=== PATIENT | female | born 1950 | race Caucasian/White ===

== ENCOUNTER → 2020-01-13 12:15 | Outpatient (CLI) | payer MEDICARE, SELFPAY ==
--- NOTE | ~2020-01-13 | MM_ITS ---
EXAMINATION: MM screening radha BI w arlet HISTORY: Screening mammogram, history of breast implant removal TECHNIQUE: Craniocaudal and mediolateral oblique 3-D tomosynthesis images were obtained and synthetic 2-D images were generated. CAD analysis was submitted and interpreted. COMPARISON: 12/07/2018, 11/30/2018, 05/20/2018, 11/14/2017, 11/11/2017, 10/28/2016, 10/27/2015 BREAST PARENCHYMAL COMPOSITION: There are scattered areas of fibroglandular density. FINDINGS: There is stable architectural distortion at the sites of prior breast implants. Also noted are a stable asymmetry in the right breast on the mediolateral oblique view and stable calcifications in the posterior third of the left breast which have undergone biopsy There is no evidence of suspic ious mass, calcification, or architectural distortion to suggest malignancy in either breast. There h as been no suspicious interval change. IMPRESSION: 1. No mammographic evidence of malignancy. 2. Recommend routine screening mammography in one year. BI-RADS Category 2: Benign finding(s). Reviewed, dictated and finalized at location A.
== END ==
PROVIDERS: PCP Internal Medicine; Visit Provider Nurse Practitioner
DX: Z12.31 Encounter for screening mammogram for malignant neoplasm of breast (principal)
CPT/HCPCS: 77063; 77067

== ENCOUNTER → 2020-07-12 11:03 | Outpatient (CLI) | payer MEDICARE, SELFPAY ==
--- NOTE | ~2020-07-12 | DEXA_ITS ---
Bone Density Report Name: Sulema Lima Age: 69 Sex: Female Ethnicity: White Date of : 1950 Indication: monitoring treatment; parental hip fracture; height loss; rheumatoid arthritis; postmenopausal Referring Provider: JOANN, MARK Study: Bone densitometry was performed. Exam Date: July 12, 2020 Accession number: [id number] Bone Density: Region BMD T-score Z-score Classification AP Spine (L1-L4) 1.011 -0.3 1.9 Normal Femoral Neck (Left) 0.730 -1.1 0.8 Osteopenia Total Hip (Left) 0.887 -0.4 1.1 Normal Femoral Neck (Right) 0.757 -0.8 1.1 Normal Total Hip (Right) 0.929 -0.1 1.5 Normal Total Hip Mean 0.908 -0.3 1.3 Normal World Health Organization criteria for BMD impression classify patients as: Normal (T-score at or above -1.0), Osteopenia (T-score between -1.0 and -2.5), or Osteoporosis (T-score at or below -2.5). 10-year Fracture Risk: FRAX not reported because: Treated for osteoporosis Previous Exams: Region Exam Age BMD T-score BMD Change BMD Change Date g/cm2 vs Baseline vs Previous AP Spine(L1-L4) 07/12/2020 69 1.011 -0.3 0.183* 0.063* 05/20/2018 67 0.949 -0.9 0.120* 0.009 02/16/2016 65 0.939 -1.0 0.111* 0.046* 02/09/2014 63 0.893 -1.4 0.065* 0.065* 09/11/2011 60 0.829 -2.0 Total Hip(Left) 07/12/2020 69 0.887 -0.4 0.032* -0.028* 05/20/2018 67 0.915 -0.2 0.060* 0.003 02/16/2016 65 0.912 -0.2 0.056* 0.034* 02/09/2014 63 0.878 -0.5 0.022 0.022 09/11/2011 60 0.856 -0.7 Total Hip(Right) 07/12/2020 69 0.929 -0.1 0.027 -0.010 05/20/2018 67 0.938 0.0 0.036* 0.023 02/16/2016 65 0.915 -0.2 0.013 -0.003 02/09/2014 63 0.918 -0.2 0.016 0.016 09/11/2011 60 0.902 -0.3 *Denotes significance at 95% confidence level, LSC for AP Spine = 0.022 g/cm2, LSC for Total Hip = 0.027 g/cm2 Clinical Information Provided by Patient: Parent has had a hip fracture Has rheumatoid arthritis Is being treated for osteoporosis Has used the following medications: Prolia (i.e. denosumab), Vitamin D, Calcium, MTV Patient maximum height was 64.5 Menopause Age: 54 Drinks caffeinated beverages Onset of menses at age 11 Number of children 3 Impression: The patient has
== END ==
PROVIDERS: PCP Internal Medicine; Visit Provider Internal Medicine
DX: M81.0 Age-related osteoporosis without current pathological fracture (principal); M85.852 Other specified disorders of bone density and structure, left thigh
CPT/HCPCS: 77080

== ENCOUNTER → 2021-02-22 11:00 | Outpatient (CLI) | payer MEDICARE, SELFPAY ==
--- NOTE | ~2021-02-22 | MM_ITS ---
EXAMINATION: MM screening radha BI w arlet HISTORY: Screening mammogram TECHNIQUE: Craniocaudal and mediolateral oblique 3-D tomosynthesis images were obtained and synthetic 2-D images were generated. CAD analysis was submitted and interpreted. COMPARISON: 01/13/2020 bilateral screening mammogram 12/07/2018 diagnostic left mammogram 11/30/2018 bilateral screening mammogram BREAST PARENCHYMAL COMPOSITION: There are scattered areas of fibroglandular density. FINDINGS: There is a biopsy marker in the left breast; history of prior benign breast biopsy. There is evidence of bilateral implant removal. There is no evidence of suspicious mass, calcification, or architectural distortion to suggest malig dmitry in either breast. There has been no suspicious interval change. IMPRESSION: 1. No mammographic evidence of malignancy. 2. Recommend routine screening mammography in one year. BI-RADS Category 2: Benign finding(s). Reviewed, dictated and finalized at location A. 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
== END ==
PROVIDERS: PCP Internal Medicine; Visit Provider Nurse Practitioner
DX: Z12.31 Encounter for screening mammogram for malignant neoplasm of breast (principal)
CPT/HCPCS: 77063; 77067

== ENCOUNTER 2022-02-04 03:09 | Day surgery (SDC) | payer MEDICARE, SELFPAY ==
[2022-01-17 13:52] VITALS: BMI 23.0
--- NOTE | 2022-02-01 13:50 | PM.HPGS ---
History of Present Illness History of Present Illness Consent: Risks, benefits, and alternatives have been discussed and questions answered. Patient agrees to proceed with procedure. Chief complaint: positive cologuard Narrative: Sulema Lima is a 71 year old female Referred for colon cancer screening. She had a positive Cologuard test Review of Systems Review of Systems: All systems reviewed & are unremarkable except as noted in HPI and below PMFSH Past Medical History Medical History BMI 23.0-23.9, adult Degenerative arthritis of knee, bilateral Surgical History Surgical History H/O foot surgery bunion History of thyroid surgery Family History Family History Other Cancer Hypertension Social History Social History Smoking status: Never smoker Substance use: never Living arrangements: with family Gender identity (if verbalized by the patient): Female Spiritual care concerns: No Meds Home Medications and Allergies Home Medications Medication Instructions Recorded Confirmed Type alprazolam 0.25 mg tablet 0.25 mg PO DAILY 03/22/20 02/04/22 History atorvastatin 20 mg tablet 20 mg PO DAILY 03/22/20 02/04/22 History carvedilol 3.125 mg tablet 3.125 mg PO Q12H 03/22/20 02/04/22 History levothyroxine 112 mcg capsule 112 mcg PO DAILY 03/22/20 02/04/22 History sertraline 50 mg tablet 50 mg PO DAILY 03/22/20 02/04/22 History Allergies Allergy/AdvReac Type Severity Reaction Status Date / Time No Known Allergies Allergy Verified 02/04/22 12:10 Exam Const: General: alert Orientation/consciousness: patient oriented x3 Resp: Auscultation: clear to auscultation bilaterally Cardio: Rhythm: regular rhythm GI: GI Palp: Yes Soft to palpation and No Tenderness to palpation present (GI) Neuro: General: patient oriented x3 Assessment and Plan Assessment and plan (1) Colon cancer screening: Code(s): Z12.11 - Encounter for screening for malignant neoplasm of colon Status: Acute Assessment and Plan: Colonoscopy with possible biopsy or polypectomy or cautery or injection of substances.
[2022-02-04 12:12] VITALS: BP 112/68; PULSE 66; RESP 18; TEMP 36.2; O2SAT 100; BMI 23.3
[2022-02-04] MEDS: LACTATED RINGERS 1,000 ML 150 ML IV CONT (12:24)
--- NOTE | 2022-02-04 12:54 | P.PNAN_ITS ---
Anes - Initial Pre Proc Eval Procedure: Operation Date: 02/04/22 13:30 Proposed Procedures p Colonoscopy - Jordan Harvey MD Date/Time: 02/04/22 12:54 Surgeon: Jordan Harvey MD Pre Op Diagnosis: positive cologuard Patient Data Age: 71 Gender: F Height: 1.6 m Weight: 59.6 kg Last Vital Signs Temp 97.1 F L 02/04/22 12:12 Pulse 66 02/04/22 12:12 Resp 18 02/04/22 12:12 BP 112/68 02/04/22 12:12 Pulse Ox 100 02/04/22 12:12 O2 Del Method Room Air 02/04/22 12:12 Allergies Allergy/AdvReac Type Severity Reaction Status Date / Time No Known Allergies Allergy Verified 02/04/22 12:10 Home Medications Medication Instructions Recorded Confirmed Type alprazolam 0.25 mg tablet 0.25 mg PO DAILY 03/22/20 02/04/22 History atorvastatin 20 mg tablet 20 mg PO DAILY 03/22/20 02/04/22 History carvedilol 3.125 mg tablet 3.125 mg PO Q12H 03/22/20 02/04/22 History levothyroxine 112 mcg capsule 112 mcg PO DAILY 03/22/20 02/04/22 History sertraline 50 mg tablet 50 mg PO DAILY 03/22/20 02/04/22 History Patient hx anesthesia problems: none Family hx anesthesia problems: none Results Review: All pre-operative results and documents have been reviewed as part of the pre- operative evaluation. [facility] Past Medical History Medical History BMI 23.0-23.9, adult Degenerative arthritis of knee, bilateral Surgical History Surgical History H/O foot surgery bunion History of thyroid surgery Family History Family History Other Cancer Hypertension Social History Social History Smoking status: Never smoker Substance use: never Living arrangements: with family Gender identity (if verbalized by the patient): Female Spiritual care concerns: No Anes - Eval Final PreProcedure Day of Procedure 02/04/22 12:54 Patient weight: normal Heart: regular rate and rhythm Lungs: clear to auscultation Airway: Mallampati scale class II Neurological: alert and oriented Last oral intake: >/= 8 hours ASA classification: II Emergent: no Anesthetic plan: proceed Anesthesia type and monitoring: general GIVS and standard monitoring Results Review: All pre-operative results and documents have been reviewed as part of the pre- operative evaluation. Informed Consent: The patient's anesthetic plan and its attendant risks and benefits were discussed with the patient/family/POA. Questions were solicited and answers provided to the satisfaction of the patient/family/POA.
[2022-02-04 13:39] VITALS: BP 109/74; PULSE 73; RESP 21; O2SAT 100
[2022-02-04 13:49] VITALS: BP 127/76; PULSE 70; RESP 21; O2SAT 100
[2022-02-04 13:59] VITALS: BP 143/85; PULSE 75; RESP 23; O2SAT 100
== END 2022-02-04 14:06 | disposition home or self-care (01) ==
PROVIDERS: PCP Internal Medicine; Visit Provider Internal Medicine Gastroenterology
PROC: 0DJD8ZZ Inspection of Lower Intestinal Tract, Via Natural or Artificial Opening Endoscopic (ICD-10-PCS; CPT 45378; principal; 2022-02-04 13:30)
DX: Z12.11 Encounter for screening for malignant neoplasm of colon (principal); K57.30 Diverticulosis of large intestine without perforation or abscess without bleeding; R19.5 Other fecal abnormalities
CPT/HCPCS: G0121; J2704; J7120

== ENCOUNTER → 2022-02-25 10:01 | Outpatient (CLI) | payer MEDICARE, SELFPAY ==
--- NOTE | ~2022-02-25 | MM_ITS ---
EXAMINATION: MM screening radha BI w arlet HISTORY: Screening TECHNIQUE: Craniocaudal and mediolateral oblique 3-D tomosynthesis images were obtained and synthetic 2-D images were generated. CAD analysis was submitted and interpreted. COMPARISON: Comparison to multiple prior studies sequentially, with oldest reviewed study dated 09/2018. BREAST PARENCHYMAL COMPOSITION: Breast composed of scattered areas of fibroglandular density. FINDINGS: The right breast is stable without evidence for malignancy. There is a developing cluster o f indeterminate calcifications in the central posterior aspect of the left breast. There is an adjace nt tissue marker. There is no evidence of suspicious mass, calcification, or architectural distortion to suggest malignancy in either breast. There has been no suspicious interval change. IMPRESSION: 1. Developing cluster of indeterminate left breast calcifications. 2. Magnification views are recommended. BI-RADS Category 0: Incomplete: Needs additional imaging evaluation. Reviewed, dictated and finalized at location A. 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
== END ==
PROVIDERS: PCP Internal Medicine; Visit Provider Nurse Practitioner
DX: Z12.31 Encounter for screening mammogram for malignant neoplasm of breast (principal); R92.8 Other abnormal and inconclusive findings on diagnostic imaging of breast
CPT/HCPCS: 77063; 77067

== ENCOUNTER → 2022-03-15 09:19 | Outpatient (CLI) | payer MEDICARE, SELFPAY ==
--- NOTE | ~2022-03-15 | MM_ITS ---
EXAMINATION: MM diagnostic mammo unilat LT HISTORY: Indeterminate left breast calcifications on screening mammogram TECHNIQUE: Magnification views of the left breast were performed. CAD analysis was submitted and inte rpreted. COMPARISON: Prior mammograms dating back to 05/20/2018 FINDINGS: With magnification, calcifications in the posterior third of the left breast have a similar morphology and distribution as on prior examinations and likely reflect dystrophic calcification at the site of prior breast implant. There has been no suspicious interval change. IMPRESSION: 1. No mammographic evidence of malignancy. 2. Recommend routine screening mammography in one year. BI-RADS Category 2: Benign finding(s). Reviewed, dictated and finalized at location A. ARY AIDE
== END ==
PROVIDERS: PCP Internal Medicine; Visit Provider Obstetrics & Gynecology Gynecology
DX: R92.8 Other abnormal and inconclusive findings on diagnostic imaging of breast (principal)
CPT/HCPCS: 77065

== ENCOUNTER → 2022-07-17 10:59 | Outpatient (CLI) | payer MEDICARE, SELFPAY ==
--- NOTE | ~2022-07-17 | DEXA_ITS ---
Bone Density Report Name: TANISHA RAMSEY Age: 71 Sex: Female Ethnicity: White Date of : 1950 Indication: monitoring treatment; parental hip fracture; height loss; rheumatoid arthritis; Referring Provider: JOANN, MARK Study: Bone densitometry was performed. Exam Date: July 17, 2022 Accession number: [id number] Bone Density: Region BMD T-score Z-score Classification AP Spine (L1-L4) 1.030 -0.2 2.2 Normal Femoral Neck (Left) 0.747 -0.9 1.1 Normal Total Hip (Left) 0.914 -0.2 1.5 Normal Femoral Neck (Right) 0.781 -0.6 1.4 Normal Total Hip (Right) 0.936 0.0 1.7 Normal Total Hip Mean 0.925 -0.1 1.6 Normal World Health Organization criteria for BMD impression classify patients as: Normal (T-score at or above -1.0), Osteopenia (T-score between -1.0 and -2.5), or Osteoporosis (T-score at or below -2.5). 10-year Fracture Risk: FRAX not reported because: All T-scores for Spine Total, Hip Total, Femoral Neck at or above -1.0 Treated for osteoporosis Previous Exams: Region Exam Age BMD T-score BMD Change BMD Change Date g/cm2 vs Baseline vs Previous AP Spine(L1-L4) 07/17/2022 71 1.030 -0.2 0.202* 0.019 07/12/2020 69 1.011 -0.3 0.183* 0.063* 05/20/2018 67 0.949 -0.9 0.120* 0.009 02/16/2016 65 0.939 -1.0 0.111* 0.046* 02/09/2014 63 0.893 -1.4 0.065* 0.065* 09/11/2011 60 0.829 -2.0 Total Hip(Left) 07/17/2022 71 0.914 -0.2 0.058* 0.026 07/12/2020 69 0.887 -0.4 0.032* -0.028* 05/20/2018 67 0.915 -0.2 0.060* 0.003 02/16/2016 65 0.912 -0.2 0.056* 0.034* 02/09/2014 63 0.878 -0.5 0.022 0.022 09/11/2011 60 0.856 -0.7 Total Hip(Right) 07/17/2022 71 0.936 0.0 0.034* 0.008 07/12/2020 69 0.929 -0.1 0.027 -0.010 05/20/2018 67 0.938 0.0 0.036* 0.023 02/16/2016 65 0.915 -0.2 0.013 -0.003 02/09/2014 63 0.918 -0.2 0.016 0.016 09/11/2011 60 0.902 -0.3 *Denotes significance at 95% confidence level, LSC for AP Spine = 0.022 g/cm2, LSC for Total Hip = 0.027 g/cm2 Clinical Information Provided by Patient: Parent has had a hip fracture Has rheumatoid arthritis Is being treated for osteoporosis Has used the following medications: Prolia (i.e. denosumab), Vit
== END ==
PROVIDERS: PCP Internal Medicine; Visit Provider Internal Medicine
DX: M81.0 Age-related osteoporosis without current pathological fracture (principal)
CPT/HCPCS: 77080

== ENCOUNTER 2023-05-26 08:10 | Outpatient (CLI) | payer MEDICARE, SELFPAY ==
--- NOTE | ~2023-05-26 | XR_ITS ---
XR knee LT min 4V DATE: 05/26/2023 08:45 INDICATION: Bilateral primary osteoarthritis of the knees TECHNIQUE: [place] and standing AP, PA and lateral views COMPARISON: 08/29/2021 bilateral knees FINDINGS: Left femoral intramedullary agnes with distal transverse through screw. Prominent periarticular spurring and severe joint space narrowing at the patellofemoral joint. Mild periarticular spurring at the lateral compartment. Medial and lateral compartment joint spaces a ppear well preserved. No radiopaque interarticular loose body or chondrocalcinosis. No fracture or dislocation or joint effusion, periosteal reaction or bone destruction is detected. IMPRESSION: Severe osteoarthritis at the patellofemoral joint Mild osteoarthritis at the lateral compartment Femoral intramedullary agnes Reviewed, dictated and finalized at location B. SPECIALIST
--- NOTE | ~2023-05-26 | XR_ITS ---
XR knee RT min 4V DATE: 05/26/2023 08:45 INDICATION: Bilateral primary osteoarthritis of knee TECHNIQUE: [place], standing AP, PA and lateral views COMPARISON: 09/10/2022 bilateral knees are not available from PACS FINDINGS: Severe patellofemoral joint space narrowing and prominent periarticular spurring consistent with severe patellofemoral osteoarthritis. Mild periarticular spurring of the lateral and to a lesser extent medial compartments. Medial and lat eral compartment joint spaces are relatively preserved. No fracture or dislocation or joint effusion, periosteal reaction or bone destruction or chondrocalci nosis is detected. IMPRESSION: Tricompartment osteoarthritis, severe at the patellofemoral joint, mild at the medial and lateral compartments Reviewed, dictated and finalized at location B. 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
== END 2023-05-26 08:11 | disposition home or self-care (01) ==
PROVIDERS: PCP Internal Medicine; Visit Provider Orthopaedic Surgery
DX: M17.0 Bilateral primary osteoarthritis of knee (principal)
CPT/HCPCS: 73564

== ENCOUNTER 2023-07-14 15:14 | Outpatient (CLI) | payer MEDICARE, SELFPAY ==
--- NOTE | ~2023-07-14 | MM_ITS ---
EXAMINATION: MM screening radha BI w arlet HISTORY: Screening TECHNIQUE: Craniocaudal and mediolateral oblique 3-D tomosynthesis images were obtained and synthetic 2-D images were generated. CAD analysis was submitted and interpreted. COMPARISON: Comparison to multiple prior studies sequentially, with oldest reviewed study dated 04/2019. BREAST PARENCHYMAL COMPOSITION: Not dense: There are scattered areas of fibroglandular density. FINDINGS: There is no evidence of suspicious mass, calcification, or architectural distortion to sugg est malignancy in either breast. There has been no suspicious interval change. IMPRESSION: 1. No mammographic evidence of malignancy. 2. Recommend routine screening mammography in one year. BI-RADS Category 1: Negative Reviewed, dictated and finalized at location A.
== END 2023-07-14 15:15 ==
PROVIDERS: PCP Internal Medicine; Visit Provider Nurse Practitioner
DX: Z12.31 Encounter for screening mammogram for malignant neoplasm of breast (principal)
CPT/HCPCS: 77063; 77067

== ENCOUNTER 2023-08-25 10:05 | Outpatient (CLI) | payer MEDICARE, SELFPAY ==
--- NOTE | 2023-08-25 10:32 | ECG_ITS ---
SEE SCANNED COPY FOR CONFIRMED REPORT MTDD
[2023-08-25 11:18] LABS: Albumin Level 4.4 g/dL (3.5-5.1); Estimated Glomerular Filt Rate > 60
== END 2023-08-25 10:06 | disposition home or self-care (01) ==
LOC: ANHLAB 10:10
PROVIDERS: PCP Internal Medicine; Visit Provider Orthopaedic Surgery
DX: M17.11 Unilateral primary osteoarthritis, right knee (principal)
CPT/HCPCS: 36415; 82040; 82565; 93005

== ENCOUNTER 2023-10-17 07:45 | Outpatient (CLI) | payer MEDICARE, SELFPAY ==
--- NOTE | 2023-10-17 | EST_ITS ---
Patient Info Name: Sulema Lima Age: 72 years : 1950 Gender: Female Ht: 63 in Wt: 135 lbs BSA: 1.66 m2 HR: 68 bpm BP: 148 / 96 mmHg Heart Rhythm: Sinus Rhythm Exam Date: 10/17/2023 8:39 AM Exam Location: Echo Lab Patient Status: Outpatient Admit Date: 10/17/2023 Staff Ordering Physician: Ivan Cerna MD Attending Provider: Ivan Cerna MD Exercise Technologist: Karen Miner [facility] Exercise Physician: Anselmo Hernandez DO Exam Type: CA stress edmond w NM Study Info A regadenoson stress test was performed. Summary 1. 1. Negative lexiscan stress test for ischemic ST changes by ECG criteria. 2. 2. Baseline hypertension. 3. 3. Nuclear scan to follow and will be reported separately. Please correlate with it. 4. 4. Patient informed of the above results. Protocol: Lexiscan Stress ECG Details Stage: REST Duration (min): 1 min : 6 sec HR (bpm): 69 SBP (mmHg): 148 DBP (mmHg): 96 Stage: REST Duration (min): 2 min : 39 sec HR (bpm): 70 SBP (mmHg): 148 DBP (mmHg): 96 Stage: STAGE 1 Duration (min): 0 min : 59 sec HR (bpm): 97 SBP (mmHg): 172 DBP (mmHg): 103 Stage: RECOVERY Duration (min): 1 min : 0 sec HR (bpm): 106 SBP (mmHg): 172 DBP (mmHg): 103 Stage: RECOVERY Duration (min): 2 min : 0 sec HR (bpm): 107 SBP (mmHg): 172 DBP (mmHg): 103 Stage: RECOVERY Duration (min): 3 min : 0 sec HR (bpm): 103 SBP (mmHg): 151 DBP (mmHg): 97 Stage: RECOVERY Duration (min): 4 min : 0 sec HR (bpm): 100 SBP (mmHg): 151 DBP (mmHg): 97 Stage: RECOVERY Duration (min): 5 min : 0 sec HR (bpm): 96 SBP (mmHg): 141 DBP (mmHg): 85 Stage: RECOVERY Duration (min): 5 min : 13 sec HR (bpm): 96 SBP (mmHg): 141 DBP (mmHg): 85 Rest HR: 70 bpm Peak HR: 110 bpm Rest Sys BP: 148 mmHg Peak Sys BP: 172 mmHg Max Pred HR: 146 bpm % Max Pred HR: 75 % Target HR: 124 bpm Max RPP: 18,920 bpm*mmHg Termination Reason: Completed protocol Cardiac Symptoms: Shortness of breath Total Time: 1 min : 0 sec [place] BP: 96 mmHg [place] BP: 103 mmHg Total Dose: 0.4 mg Resting ECG Sinus rhythm. Stress ECG No ST changes. Arrhythmias None. Report Signatures
--- NOTE | ~2023-10-17 | NM_ITS ---
EXAMINATION: NM edmond stress w perfusion DATE: 10/17/2023 09:27 INDICATION: Chest pain. TECHNIQUE: Rest images were obtained following intravenous administration of 10.66 mCi Tc99m tetrofos min (Myoview). The patient was infused intravenously with Lexiscan (regadenoson). Then, 30.55 mCi Tc9 9m tetrofosmin (Myoview) was administered intravenously, and stress images were obtained. Data was re constructed into short axis and horizontal and vertical long axis SPECT images. Gated SPECT images we re also obtained. COMPARISON: None. FINDINGS: There is no definite reversible or fixed perfusion abnormality to suggest ischemia or infar ction. There is no segmental wall motion abnormality. Left ventricular ejection fraction measures 6 8%. IMPRESSION: 1. No definite ischemia or infarct. 2. Normal left ventricular ejection fraction measuring 68%. Reviewed, dictated and finalized at location A.
== END 2023-10-17 07:46 | disposition home or self-care (01) ==
PROVIDERS: PCP Internal Medicine; Visit Provider Chiropractor
DX: R07.9 Chest pain, unspecified (principal); R94.31 Abnormal electrocardiogram [ECG] [EKG]
CPT/HCPCS: 78452; 93017; A9502; J2785

== ENCOUNTER 2023-12-05 09:46 | Outpatient (CLI) | payer MEDICARE, SELFPAY ==
[2023-12-05 11:16] LABS: Basophils Absolute Auto 0.1 K/mm3 (0.0-0.1); Basophils Percent Auto 1.2 % (0.2-1.2); Eosinophils Absolute Auto 0.2 K/mm3 (0-0.3); Eosinophils Percent Auto 3.6 % (0-4.4); Hematocrit 39.9 % (37.0-47.0); Hemoglobin 13.1 g/dL (12.0-15.0); Immature Granulocyte Absolute 0.01 K/mm3 (0.00-0.031); Immature Granulocyte Percent A 0.2 % (0-0.5); Lymphocytes Absolute Auto 1.58 K/mm3 (0.9-3.2); Lymphocytes Percent Auto 27.1 % (18.3-44.2); Mean Corpuscular HGB Conc 32.8 g/dl (32-36); Mean Corpuscular Hemoglobin 31.5 pg (26-34); Mean Corpuscular Volume 95.9 fl (80-100); Mean Platelet Volume 9.2 fl (7.4-10.4); Monocytes Absolute Auto 0.5 K/mm3 (0.1-0.6); Monocytes Percent Auto 8.1 % (2.6-8.5); Neutrophils Absolute Auto 3.5 K/mm3 (1.3-6.7); Neutrophils Percent Auto 59.8 % (45.5-73.1); Platelet Count Result 288 k/mm3 (150-375); Red Blood Count 4.16 M/mm3 (4.2-5.4); Red Cell Distribution Width 12.7 % (11.5-14.5); White Blood Count 5.8 K/mm3 (4.5-10.0)
[2023-12-05 11:32] LABS: Hemoglobin A1C 6.2 % (<5.7)
[2023-12-05 11:34] LABS: Urine Cotinine NEGATIVE
[2023-12-05 13:04] LABS: MRSA (PCR) NOT DETECTED (NOT DETECTE)
== END 2023-12-05 09:47 | disposition home or self-care (01) ==
PROVIDERS: PCP Internal Medicine; Visit Provider Orthopaedic Surgery
DX: M17.11 Unilateral primary osteoarthritis, right knee (principal); Z01.818 Encounter for other preprocedural examination
CPT/HCPCS: 80307; 83036; 85025; 87641

== ENCOUNTER 2023-12-19 11:24 | Outpatient (CLI) | payer MEDICARE, SELFPAY ==
[2023-12-19 12:16] LABS: Albumin Level 4.4 g/dL (3.5-5.1); Estimated Glomerular Filt Rate > 60; Glucose 98 mg/dL (65-110)
== END 2023-12-19 11:25 | disposition home or self-care (01) ==
PROVIDERS: PCP Internal Medicine; Visit Provider Orthopaedic Surgery
DX: Z01.812 Encounter for preprocedural laboratory examination (principal); M17.11 Unilateral primary osteoarthritis, right knee
CPT/HCPCS: 36415; 82040; 82565; 82947

== ENCOUNTER 2023-12-30 02:55 | Day surgery (SDC) | payer MEDICARE, SELFPAY ==
[2023-12-05 10:01] VITALS: BMI 24.5
--- NOTE | 2023-12-05 10:33 | PC.NURSE ---
Report to the Outpatient Waiting Room, entrance under the green pavilion located off [facility], at time __8:00 AM on date 12/30/23 _. Planned Procedure Time: __10:00AM .? Time changes happen often and if your time is changed the preop area will call you the afternoon before. - You and your visitor will be asked to self-screen and do not enter if you have any COVID symptoms. Please call surgeon if you need to reschedule. - A mask is optional within the hospital at this time. Patients may have clear liquids (water, carbonated beverages, clear teas, apple juice) until 3 hours prior to surgery( 7:00 AM) with a maximum of 20 ounces. - No food from midnight until time of surgery and no smoking - Infants may have breast milk until 4 hours before surgery, formula 6 hours prior to surgery. - Children will be allowed to drink immediately following surgery.? If applicable, please bring a bottle or sippy cup to assist with drinking. Juice, water, soda, and popsicles are readily available.? For infants on formula, please bring formula the day of surgery.? Pacifiers are allowed. Take only the following medications with a SIP of water on the morning of surgery: __ALPRAZOLAM,CARVEDILOL,GABAPENTIN,,LEVOTHYROXINE DO NOT STOP ANY OF YOUR OTHER PRESCRIPTION MEDICATIONS PRIOR TO SURGERY EXCEPT THE FOLLOWING Medications to discontinue per physician _PATIENT STATES _HOLD IBUPROFEN AND ALL VITAMINS AND SUPPLEMENTS 7 DAYS PRE OP PER DR MEYER LAST DOSE 12/22/23 MAY TAKE TYLENOL IF NEEDED FOR PAIN Please no make-up, nail pashto, hairspray, perfume, deodorant, or body powder the day of surgery.? No jewelry (including any body piercings) or valuables the day of surgery, leave them at home.? Please take a shower or bath the night before, or the morning of, surgery with an antibacterial soap.? Wear comfortable, loose fitting clothing.? Children are encouraged to wear pajamas. - Jewelry must be removed prior to entering the operating room.? Rings and piercings that are not removed may be cut off. - The hospital will not accept responsibility for valuables.? - Please leave all valuables, including medications, at home the day of surgery. If you are going home after surgery, a licensed yard driver must drive you home.? - NO public transportation without another adult if you receive anesthesia. - We recommend that an adult stay with you for 24 hours following discharge. - We also recommend that you do not drive, make important decision, drink alcoholic beverages, or take any drugs that were not prescribed by your health care provider for at least 24 hours after your discharge time. Follow any additional instructions given to you from your surgeon. VERBAL AND WRITTEN instructions given to _PATIENT AND SPOUSE JOSEPH and asked if any additional questions and then verbalized understanding. Patient advised to call surgeon office or pre surgery nurse liaison [phone] if any additional questions.
[2023-12-05 10:52] VITALS: BP 143/80; PULSE 65; RESP 18; TEMP 36.4; O2SAT 100
[2023-12-30] VITALS (13 sets, daily range): BP systolic 121–151; BP diastolic 51–77; PULSE 77–93; RESP 10–18; TEMP 36.4–37.4; O2SAT 92–100; BMI 24.5; BMI 24.2
--- NOTE | ~2023-12-30 | XR_ITS ---
EXAMINATION: [id number] DATE: 12/30/2023 12:59 INDICATION: Postoperative evaluation following right total knee arthroplasty. TECHNIQUE: Anteroposterior and lateral views of the right knee were obtained. COMPARISON: None. FINDINGS: Right total knee arthroplasty with patellar resurfacing appears well seated and in near anatomic alig nment. No fractures identified. Expected postoperative subcutaneous and intra-articular gas. IMPRESSION: 1. Right total knee arthroplasty, negative for postoperative purposes. Reviewed, dictated and finalized at location B.
[2023-12-30] MEDS: LACTATED RINGERS 1,000 ML 30 ML IV CONT ×2 (08:52→12:33)
[2023-12-30] MEDS: ACETAMINOPHEN 500 MG TABLET 1000 MG PO (08:52)
--- NOTE | 2023-12-30 09:08 | WPDHPUPDATE1 ---
History and Physical Update Update Date/Time: 12/30/23 09:08 History and Physical has been reviewed, including an updated exam of the patient. There are NO changes in the patient's condition. Risks, benefits, and alternatives have been discussed and questions answered. Patient agrees to proceed with procedure.
[2023-12-30] MEDS: TRANEXAMIC ACID 1,000MG/ISO100 1,000 MG/100 ML BAG 200 MG IVPB (09:30)
--- NOTE | 2023-12-30 09:49 | WPDANESEPPF ---
Anes - Initial Pre Proc Eval Procedure: Operation Date: 12/30/23 10:00 Proposed Procedures p Right Total Knee Arthroplasty - James Tyler MD Date/Time: 12/30/23 09:49 Surgeon: James Tyler MD Pre Op Diagnosis: primary oa right knee Patient Data Age: 73 Gender: F Height: 1.6 m Weight: 63 kg Last Vital Signs Temp 36.7 C 12/30/23 08:56 Pulse 77 12/30/23 08:56 Resp 16 12/30/23 08:56 BP 134/73 12/30/23 08:56 Pulse Ox 99 12/30/23 08:56 O2 Del Method Room Air 12/05/23 10:52 Allergies Allergy/AdvReac Type Severity Reaction Status Date / Time No Known Allergies Allergy Verified 12/05/23 10:02 Home Medications Medication Instructions Recorded Confirmed Type alprazolam 0.25 mg tablet 0.25 mg PO BID 03/22/20 12/05/23 History atorvastatin 20 mg tablet 20 mg PO DAILY 03/22/20 12/05/23 History levothyroxine 112 mcg capsule 56 mcg PO DAILY 03/22/20 12/05/23 History sertraline 50 mg tablet 50 mg PO HS 03/22/20 12/05/23 History gabapentin 100 mg capsule 200 mg PO BID 01/16/23 12/05/23 History cholecalciferol (vitamin D3) 50 50 mcg PO DAILY 05/26/23 12/05/23 History mcg (2,000 unit) capsule denosumab 60 mg/mL subcutaneous 60 mg subcut [id number] 05/26/23 12/05/23 History syringe (Prolia) multivitamin 1 tablet PO DAILY 05/26/23 12/05/23 History calcium carb-ergocalciferol (vit 1 tablet PO DAILY 12/05/23 12/05/23 History D2) 600 mg calcium-200 unit tablet carvedilol 3.125 mg tablet 3.125 mg PO Q12H 12/05/23 12/05/23 History ibuprofen 400 mg tablet 400 mg PO Q6H PRN Pain 12/05/23 12/05/23 History aspirin 81 mg tablet,delayed 81 mg PO BID 14 days #28 tabs 12/30/23 Rx release meloxicam 15 mg tablet 15 mg PO DAILY #30 tabs 12/30/23 Rx oxycodone-acetaminophen 5 mg-325 1 - 2 tablet PO Q4-6H PRN pain 7 12/30/23 Rx mg tablet days #30 tabs prednisone 5 mg tablet 5 mg PO DAILY 3 weeks #21 tabs 12/30/23 Rx Patient hx anesthesia problems: none Family hx anesthesia problems: none Results Review: All pre-operative results and documents have been reviewed as part of the pre-operative evaluation. [facility] Past Medical History Medical History BMI 23.0-23.9, adult Degenerative arthritis of knee, bilateral Surgical History Surgical History H/O foot surgery bunion History of thyroid surgery Family History Family History Other Cancer Hypertension Social History Social History Smoking status: Never smoker Additional smoking assessment comments: DENIES ANY FORM OF TOBACCO USE Alcohol intake: never Substance use: never Do You Feel Safe in your Home?: Yes Lack of Transportation: No Lack of Food: Never True Current Housing: I Have Housing Concerned About Future Housing: No Difficulty Paying Gas/Electric Bills: No Difficulty Paying for Meds: Decline to Answer Currently Unemployed: Decline to Answer Education: High School Diploma/GED Difficulty w/ Childcare or Family Care: No Living arrangements: with family Occupation/Education: retired Gender identity (if verbalized by the patient): Female Spiritual care concerns: No Anes - Eval Final PreProcedure Day of Procedure 12/30/23 09:49 Patient weight: normal Heart: regular rate and rhythm Lungs: clear to auscultation Airway: Mallampati scale class II Neurological: alert and oriented Last oral intake: >/= 8 hours ASA classification: III Emergent: no Anesthetic plan: proceed Anesthesia type and monitoring: general LMA and standard monitoring Results Review: All pre-operative results and documents have been reviewed as part of the pre-operative evaluation. Informed Consent: The patient's anesthetic plan and its attendant risks and benefits were di
[2023-12-30] MEDS: ceFAZolin 2 GM/D5W 50 ML 2 GM/50 ML BAG IVPB ×2 (10:07→17:20)
[2023-12-30] MEDS: SODIUM CHLORIDE 0.9% IV 37.7 ML, MORPHINE SULFATE INJ (*CRX) 2 MG, ROPivacaine HCL 1% 2... INFILTRATE (10:38)
[2023-12-30] MEDS: TRANEXAMIC ACID 1,000 MG/10 ML AMPUL 1000 MG IV PUSH (12:10)
--- NOTE | 2023-12-30 14:24 | ADMGEN ---
This patient, Sulema Lima, was admitted to Medical Room 250-01. Patient/family oriented to hospital policies and general routines including ID bracelet, bed and alarms, visiting hours, pain management, procedures, bathroom and other care routines, personal items, smoking policy, room service/diet, and visiting hours. Information on how to activate the Rapid Response Team has been discussed. Patient/Family are encouraged to report perceived risks to care and to ask questions if they do not understand what they are told or what they should do.
--- NOTE | 2023-12-30 14:37 | W.PM.PROC2 ---
Procedure Note - Detailed Date of Procedure 12/30/23 Pre-op Diagnosis Severe osteoarthritis right knee. Post-op Diagnosis Same Procedure Performed Calipered, kinematically aligned total knee replacement right knee. Surgeon James Tyler MD Retail Field Merchandiser Pippa Hadley PA-C Anesthesia General Indications Severe degenerative arthritis of the knee. Failed conservative treatment. Findings According to the calipered kinematic alignment principles, the knee was balanced by the following verification checks incorporating 6 caliper measurements, using an insert goniometer to select the insert thickness, and adjusting the tibial resection following the kinematic alignment algorithm (see figure 160.10 published in [employer] chapter on kinematic alignment total knee arthroplasty.) The steps verified the femoral and tibial components were kinematically aligned coincident to the patient's pre arthritic joint lines, which closely restored the [place] tibial compartment forces and ligament laxities without ligament release. The [employer] Land[employer]+GyrK SperiKA knee, designed specifically for kinematic alignment, fit optimally. The record of verification checks were documented and scanned into the chart. Distal Femoral Resection: Distal Lateral 5 +1 mm recut(cartilage worn), Distal Medial 8 mm Target thickness of 8mm Unworn, 6mm Worn (No Cartilage). Posterior Femoral Resection: Posterior Medial 7 mm, Posterior Lateral 7 mm. Target thickness of 7mm Unworn. Description of Procedure General anesthesia was administered. A well-padded tourniquet was placed high on the thigh. The limb was prepped and draped in the usual sterile fashion. The limb was exsanguinated and the tourniquet inflated to 300 mmHg. A longitudinal incision was created over the midline of the knee. Sharp dissection was taken through subcutaneous tissues. Electrocautery was used for hemostasis. A trivector approach to the knee joint was performed. The ACL, anterior horns of the menisci, and fat pad were excised, and a subperiosteal dissection was carried along the posterior medial border of the tibia. The thickness of the [place] patella was measured with a caliper. The patella was resected using the oscillating saw. The best fitting anatomic patella button was selected. The fixation holes were drilled. When the patella and patella buttons combined thickness was thicker than the [place] patella, the patella was recut. Starting midway between the top of the notch in the anterior femoral cortex, I drilled a 9 mm diameter hole parallel to the anterior cortex to minimize flexion of the femoral component and promote patella tracking. I verified the existence of a 5-10 mm bone bridge between the posterior aspect of the hole and the anterior limit of the intercondylar notch. An intraosseous positioning agnes was inserted 10 cm into the femur perpendicular to the distal joint line and parallel to the anterior cortex. I used a distal femoral referencing guide that compensated 2 mm when the cartilage was worn on the distal medial femoral condyle, and 2 mm when the cartilage was worn on the distal lateral femoral condyle. The basis for setting the distal and posterior femoral resection guide is knowing that the varus and valgus grade II to IV Kellegren-Varghese osteoarthritic knees have negligible bone wear at 0? and 90? and that the mean full-thickness cartilage wear approximates 2 mm. I measured the thickness of distal femoral resections with a caliper to +/- 0.5 mm. The thickness of each resection was adjusted to match the thickness of the respective condyle of the femoral component within 0.5 mm of target after compensating for cartilage wear and kerf. When the distal resection was 1-2 mm too thin, a recut guide was used to adjust the cut. When the distal resection was too thick, a 1 or 2 mm thick washer was fixed to the back of the 4-in-1 chamfer block to clint a corrective gap between the femoral component a
[2023-12-30] MEDS: oxyCODONE/ACETAMINOPHEN (*CRX) 5-325 MG TABLET 1 TABLET PO (17:19)
[2023-12-30] MEDS: ALPRAZolam (*CRX) 0.25 MG TABLET PO (17:19)
[2023-12-30] MEDS: predniSONE 5 MG TABLET PO (17:19)
[2023-12-30] MEDS: GABAPENTIN 100 MG CAPSULE 200 MG PO (17:19)
[2023-12-30] MEDS: SENNA/DOCUSATE SODIUM TABLET 2 TAB PO (17:19)
[2023-12-30] MEDS: ACETAMINOPHEN 325 MG TABLET 650 MG PO ×2 (17:21→23:30)
[2023-12-30] MEDS: ONDANSETRON INJ 4 MG/2 ML VIAL IV PUSH (18:24)
[2023-12-30] MEDS: SODIUM CHLORIDE 0.9% IV 1,000 ML 125 ML IV CONT (18:24)
[2023-12-30] MEDS: carvediloL 3.125 MG TABLET PO (20:20)
[2023-12-30] MEDS: FAMOTIDINE 20 MG TABLET PO (20:20)
[2023-12-30] MEDS: ASPIRIN 81 MG ENTERIC TABLET PO (20:20)
[2023-12-30] MEDS: SERTRALINE HCL 50 MG TABLET PO (20:21)
[2023-12-31] MEDS: ceFAZolin 2 GM/D5W 50 ML 2 GM/50 ML BAG IVPB (01:31)
[2023-12-31 01:40] LABS: Glucose Point of Care 163 mg/dl (65-105)
[2023-12-31 03:48] VITALS: BP 118/67; PULSE 86; RESP 18; TEMP 36.7; O2SAT 97
[2023-12-31 05:26] VITALS: BP 118/67; PULSE 86; RESP 18; TEMP 36.7; O2SAT 97
[2023-12-31] MEDS: ACETAMINOPHEN 325 MG TABLET 650 MG PO ×2 (06:14→13:01)
[2023-12-31] MEDS: LEVOTHYROXINE SODIUM 50 MCG TABLET PO (06:15)
[2023-12-31] MEDS: CYCLOBENZAPRINE HCL 10 MG TABLET PO (06:17)
[2023-12-31 06:38] LABS: Basophils Absolute Auto 0.1 K/mm3 (0.0-0.1); Basophils Percent Auto 0.6 % (0.2-1.2); Eosinophils Percent Auto 0.1 % (0-4.4); Hematocrit 33.1 % (37.0-47.0); Hemoglobin 10.9 g/dL (12.0-15.0); Immature Granulocyte Absolute 0.03 K/mm3 (0.00-0.031); Immature Granulocyte Percent A 0.4 % (0-0.5); Lymphocytes Absolute Auto 1.34 K/mm3 (0.9-3.2); Lymphocytes Percent Auto 15.8 % (18.3-44.2); Mean Corpuscular HGB Conc 32.9 g/dl (32-36); Mean Corpuscular Hemoglobin 31.2 pg (26-34); Mean Corpuscular Volume 94.8 fl (80-100); Mean Platelet Volume 9.1 fl (7.4-10.4); Monocytes Absolute Auto 0.8 K/mm3 (0.1-0.6); Monocytes Percent Auto 9.8 % (2.6-8.5); Neutrophils Absolute Auto 6.2 K/mm3 (1.3-6.7); Neutrophils Percent Auto 73.3 % (45.5-73.1); Platelet Count Result 281 k/mm3 (150-375); Red Blood Count 3.49 M/mm3 (4.2-5.4); Red Cell Distribution Width 13.1 % (11.5-14.5); White Blood Count 8.5 K/mm3 (4.5-10.0)
[2023-12-31 06:46] LABS: Anion Gap 9 mmol/L (4-12); Blood Urea Nitrogen 9 mg/dL (7-17); Calcium 7.8 mg/dL (8.4-10.2); Carbon Dioxide 23 mmol/L (22-30); Chloride 99 mmol/L (98-107); Estimated CRCL calculation 49 ml/min; Estimated Glomerular Filt Rate > 60; Glucose 120 mg/dL (65-110); Potassium 3.5 mmol/L (3.4-5.0); Sodium 131 mmol/L (137-145)
--- NOTE | 2023-12-31 08:03 | PM.DS ---
DS: Admitting Diagnosis Discharge Date 12/31/23 Admitting Diagnosis Knee arthritis. DS: Discharge Diagnosis Discharge Diagnosis (1) Status post total right knee replacement: Code(s): Z96.651 - Presence of right artificial knee joint Status: Acute Assessment and Plan: Postop day 1: Right total knee arthroplasty. Patient tolerated procedure well. No complications. Pain manageable with pain medication. No numbness or tingling. We had a lengthy discussion regarding postoperative wound care, limitations, expectations, and exercises. Patient shows good understanding. She has had initial physical therapy and is tolerating it well. DVT prophylaxis: 81 mg baby aspirin b.i.d. for 14 days. Pain medication: Percocet. Meloxicam. Prednisone. Patient has followup appointment with Dr. Tyler in 3 weeks. DS: Summary Hospital Course Reason for hospitalization: Total knee arthroplasty Hospital Course: Patient tolerated procedure well. Has had initial PT/OT. Status at Discharge Functional status at discharge: uses cane/walker Overall status at discharge: patient is progressing back to baseline Time Spent with Patient Time attestation: Total time spent providing and/or coordinating discharge services: Exam Narrative: 73-year-old normal weight female. Resting comfortably in bed. Alert and oriented x3. No acute distress. Wearing compression socks bilaterally. Dressing intact without drainage on Mepilex. Mild swelling. Mild ecchymosis. No erythema. No hematoma. Range of motion limited due to pain. Calf nontender. Quad fires. Neurologic status intact. No varicosities. Distal pulses palpable. DS: Data Data Completed and Pending Labs on day of discharge: Labs from last 24 hours 12/31/23 12/30/23 12/30/23 06:22 23:54 08:24 WBC 8.5 RBC 3.49 L Hgb 10.9 L Hct 33.1 L MCV 94.8 MCH 31.2 MCHC 32.9 RDW 13.1 Plt Count 281 MPV 9.1 Immature Gran % (Auto) 0.4 Neut % (Auto) 73.3 H Lymph % (Auto) 15.8 L Moore % (Auto) 9.8 H Eos % (Auto) 0.1 Baso % (Auto) 0.6 Lymph # (Auto) 1.34 Moore # (Auto) 0.8 H Eos # (Auto) 0.0 Baso # (Auto) 0.1 Abs Immat Gran (auto) 0.03 Absolute Neuts (auto) 6.2 Absolute Nucleated RBC 0.000 Nucleated RBC % 0.0 Sodium 131 L Potassium 3.5 Chloride 99 Carbon Dioxide 23 Anion Gap 9 BUN 9 Creatinine 0.70 Estim Creat Clear Calc 49 Estimated GFR > 60 Glucose 120 H POC Capillary Glucose 163 H Calcium 7.8 L Blood Type O Positive Antibody Screen Negative Discharge Plan Discharge Patient Disposition: Home, Self-Care Discharge Instructions: See green instruction sheets Stand Alone Forms: General Discharge Instructions Follow-up/Referrals: Pippa Hadley PA [Physician Industrial Sales Manager] - Discharge Medications: New meloxicam 15 mg tablet 15 mg PO DAILY Qty: 30 0RF Rx Instructions: Cut in half. Take 1/2 in morning and 1/2 at night. Take with food. Stop if stomach upset. prednisone 5 mg tablet 5 mg PO DAILY 21 Days Qty: 21 0RF aspirin 81 mg tablet,delayed release (DR/EC) 81 mg PO BID 14 Days Qty: 28 0RF oxycodone-acetaminophen 5-325 mg tablet 1 - 2 tablet PO Q4-6H PRN (Reason: pain) 7 Days Qty: 30 0RF Continued sertraline 50 mg tablet 50 mg PO HS levothyroxine 112 mcg capsule 56 mcg PO DAILY alprazolam 0.25 mg tablet 0.25 mg PO BID atorvastatin 20 mg tablet 20 mg PO DAILY carvedilol 3.125 mg tablet 3.125 mg PO Q12H Rx Instructions: must administer with a meal/food gabapentin 100 mg capsule 200 mg PO BID Prolia 60 mg/mL syringe 60 mg subcut [id number] multivitamin Tablet 1 tablet PO DAILY cholecalciferol (vitamin D3) 50 mcg (2,000 unit) capsule 50 mcg PO DAILY calcium carbonate-vitamin D2 600 mg calcium- 200 unit Tablet 1
[2023-12-31] MEDS: FAMOTIDINE 20 MG TABLET PO (08:05)
[2023-12-31] MEDS: CHOLECALCIFEROL 1,000 UNITS TABLET 2000 UNITS PO (08:05)
[2023-12-31] MEDS: ASPIRIN 81 MG ENTERIC TABLET PO (08:05)
[2023-12-31 08:06] VITALS: PULSE 88
[2023-12-31] MEDS: HYDROcodone/acetaminophen (*CRX) 10-325 MG TABLET 1 TAB PO (08:06)
[2023-12-31] MEDS: SENNA/DOCUSATE SODIUM TABLET 2 TAB PO (08:06)
[2023-12-31] MEDS: carvediloL 3.125 MG TABLET PO (08:06)
[2023-12-31] MEDS: GABAPENTIN 100 MG CAPSULE 200 MG PO (08:07)
[2023-12-31] MEDS: ALPRAZolam (*CRX) 0.25 MG TABLET PO (08:07)
[2023-12-31] MEDS: CALCIUM/VITAMIN D 500 MG/5 MCG (200 I.U.) TABLET PO (08:07)
[2023-12-31] MEDS: polyethylene glycoL 3350 17 GM POWD.PACK PO (08:07)
[2023-12-31] MEDS: ATORVASTATIN 20 MG TABLET PO (08:07)
[2023-12-31] MEDS: MULTIVITAMINS THERAPEUTIC TAB (*BKC) 1 TABLET PO (08:07)
[2023-12-31 08:50] VITALS: BP 120/61
--- NOTE | 2023-12-31 08:52 | ECG_ITS ---
Test Date: 2023-12-31 08:08:39 Measurements Intervals [place] Rate: 72 P: 61 NE: 172 QRS: 37 QRSD: 109 T: 42 QT: 416 QTc: 455 Interpretive Statements SINUS RHYTHM MODERATE T-WAVE ABNORMALITY, CONSIDER ANTERIOR ISCHEMIA ABNORMAL ECG No previous ECG available for comparison Electronically Signed On 12-31-2023 10:22:47 CDT by Anselmo Hernandez D.O.
[2023-12-31 09:19] LABS: Glucose Point of Care 150 mg/dl (65-105)
--- NOTE | 2023-12-31 10:11 | PC.NURSE ---
At approximately 0850 patient stood from chair with and therapy outside of the room, and got nauseated and had what is presumed to be a vagal response. Student nurse entered room and found patient leaned forward over the bed not responding. Patient was sat back in chair and rapid response was called. Vitals all WNL and POC blood sugar 150. Provider ordered EKG and attending physician Dr. Tyler was notified. Patient to stay until noon and if feeling better instructed to not take scheduled xanax at same time as pain medication. If taking pain medication, instructed to try the low dose instead of 10mg.
[2023-12-31] MEDS: POTASSIUM CHLORIDE 20 MEQ ER TABLET 40 MEQ PO (13:01)
--- NOTE | 2023-12-31 16:13 | P.PNCROSS_ITS ---
Event Note Event Note Event Note: Rapid response Code: Patient status post right total knee recuperating well patient plans to discharge today. Patient received hydrocodone and [place] for pain and Xanax for anxiety within a brief period and had a vagal response at the bedside where she was found hunched over the bed and was not responding. was at bedside. I rushed to evaluate the patient. Vitals were checked which were within normal range and blood sugar level was 15. Patient became responsive within a minute and surgery notified. Patient kept in the hospital until noon today for close monitoring with plans to discharge by Orthopedic surgery with instructions to the patient NOT to take pain med and Xanax at the same time, and to take a lower dose of pain meds as needed. Further medical management as per primary Orthopedic surgery Team. Hospitalist team will sign off!
== END 2023-12-31 13:05 | disposition home or self-care (01) ==
LOC: ANHSURGERY 09:39 → ANH2MED 14:10
PROVIDERS: Physician Assistant Surgical; PCP Internal Medicine; Visit Provider Orthopaedic Surgery
PROC: (CPT 27447; principal; 2023-12-30 10:00)
DX: M17.11 Unilateral primary osteoarthritis, right knee (principal); M25.761 Osteophyte, right knee; Z79.1 Long term (current) use of non-steroidal anti-inflammatories (NSAID); Z79.82 Long term (current) use of aspirin; Z79.891 Long term (current) use of opiate analgesic; Z79.52 Long term (current) use of systemic steroids; Z98.890 Other specified postprocedural states; Z80.9 Family history of malignant neoplasm, unspecified
CPT/HCPCS: 27447; 36415; 73560; 80048; 82948; 85025; 86850; 86900; 86901; 93005; 97110; 97161; 97165; C1776; A9270; C1713; J0171; J0690; J1100; J1170; J1885; J2250; J2270; J2405; J2704; J2795; J3010; J7030; J7120; J7512

== ENCOUNTER 2024-02-18 09:39 | Outpatient (CLI) | payer MEDICARE, SELFPAY ==
--- NOTE | ~2024-02-18 | XR_ITS ---
Right Knee Technique: AP, lateral, and sunrise views were obtained. Clinical History: Arthroplasty Findings: No fracture or dislocation is seen. Right knee arthroplasty in place. No hardware complicat ion seen. Soft tissues are unremarkable. No joint effusion is seen. Impression: Right knee arthroplasty in place. No acute abnormality. Reviewed, dictated and finalized at location . [place] Impression: Right knee arthroplasty in place. No acute abnormality.
== END 2024-02-18 09:40 | disposition home or self-care (01) ==
PROVIDERS: PCP Internal Medicine; Visit Provider Orthopaedic Surgery
DX: Z96.651 Presence of right artificial knee joint (principal)
CPT/HCPCS: 73562

== ENCOUNTER 2024-07-06 10:18 | Outpatient (CLI) | payer MEDICARE, SELFPAY ==
--- NOTE | ~2024-07-06 | XR_ITS ---
EXAMINATION: XR hip LT 2V w AP pelvis DATE: 07/06/2024 10:36 INDICATION: Left hip pain. TECHNIQUE: An anteroposterior view of the pelvis and 2 views on 3 radiographs of the left hip were ob tained. COMPARISON: Pelvis and hip radiographs 05/17/2020 FINDINGS: Bone alignment is normal. There is an old healed fracture of left femoral diaphysis with in ternal fixation with antegrade intramedullary agnes, distal interlocking screw, and 2 femoral head/neck interlocking screws. There is mild osteoarthritis of the hips. There is moderate lumbar spondylosis. IMPRESSION: 1. Mild osteoarthritis of the hips. Reviewed, dictated and finalized at location A.
--- OUTSIDE RECORDS SUMMARY | 2024-07-06 12:09 | XMS_ITS | Clinical Summary ---
Author Organization [facility] Address [address] [place] [address] Care Team Providers Care Pump Machine Operator Name Role Phone Varghese Hernandez MD Primary Care Provider [phone] Allergies No known active allergies Medications ALPRAZolam (XANAX) 0.25 mg tabletIndicatio ns:Microcalcifi cation of left breast on mammogram,Abnor mal mammogram Take 0.25 mg by mouth 2 times daily as needed for Anxiety. 9 Active levothyroxine 112 mcg tabletIndicatio ns:Microcalcifi cation of left breast on mammogram,Abnor mal mammogram Take 112 mcg by mouth daily in the morning. 1/2 tab in AM, 1/2 tab in PM Active atorvastatin (LIPITOR) 20 mg tablet Take 20 mg by mouth daily with supper. Active sertraline (ZOLOFT) 50 mg tablet Take 50 mg by mouth daily. Active carvediloL (COREG) 3.125 mg tablet Take 1 Tablet (3.125 mg) by mouth 2 times daily. Do not take unless blood pressure consistently above 140/90 after discussion with your doctor. 3 Active gabapentin (NEURONTIN) 100 mg capsule Take 2 Capsules (200 mg) by mouth every 12 hours. 120 Capsule 02/07/2023 1:58 PM CDT 3 Active HYDROcodone-grace taminophen (NORCO) 5-325 mg tabletIndicatio ns:Closed fracture of left hip, initial encounter (CMS/[facility]) Take 1 Tablet by mouth every 6 hours as needed for Break-Through Pain. Max Daily Amount: 4 Tablets 15 Tablet 02/07/2023 1:58 PM CDT 3 Active polyethylene glycol (MIRALAX) 17 gram Powder in Packet Take 1 Packet (17 Grams) by mouth 2 times daily as needed for Constipation. 3 Active naloxone (NARCAN) 4 mg/spray [place], Non-Aerosol EMERGENCY USE ONLY: Administer 1 spray (4 mg) in one nostril one time. May repeat in alternating nostrils every 2-3 min until responsive or EMS arrives. 2 Each 3 02/07/2023 1:58 PM CDT 3 Active Active Problems Problem Noted Date Diagnosed Date Essential hypertension 02/05/2023 Hypercholesterolemia 02/05/2023 Hypothyroidism 02/05/2023 Depressive disorder 02/05/2023 Closed fracture of left femur 02/05/2023 Closed fracture of left hip 02/05/2023 Foreign material 06/25/2018 Microcalcification of left breast on mammogram 0 06/04/2018 Abnormal mammogram 06/04/2018 Abnormal ultrasound of breast 06/04/2018 Osteoporosis 10/21/2017 Social History Tobacco Use Types Packs/Day Years Used Date Smoking Tobacco: Never Smokeless Tobacco: Never Alcohol Use Standard Drinks/Week Comments Yes 0 (1 standard drink = 0.6 oz pur e alcohol) Feeling Safe Answer Date Recorded Are you in a relationship wi th someone who hurts you emotionally and/or physically? 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 Gender Identity Not on file Sexual Orientation Not on file Last Filed Vital Signs Vital Sign Reading Time Taken Comments Blood Pressure 107/65 02/07/2023 7:00 AM CDT Pulse 92 02/07/2023 7:00 AM CDT Temperature 36.9 C (98.4 F) 02/07/2023 7:00 AM CDT Respiratory Rate 18 02/07/2023 7:00 AM CDT Oxygen Saturation 99% 02/07/2023 7:00 AM CDT Inhaled Oxygen Concentration - - Weight 61.3 kg (135 lb 1.6 oz) 02/05/2023 2:52 A M CDT Height 160 cm (5' 3 ) 02/06/2023 9:00 AM CDT Body Mass Index 23.93 02/05/2023 2:52 AM CDT Plan of Treatment Health Maintenance Due Date Last Done Comments DTAP/TDAP/TD VACCINES (1 - Tdap) 11/28/1967 COLORECTAL SCREENING 1993 Colorectal Cancer Screening 1993 FIT-DNA Q 3 years 1993 FIT/FOBT Q 1 year 1993 Flex Sig/CT Colonography Q 5 years 1993 OSTEOPOROSIS SCREENING 2013 INFLUENZA VACCINE (#1) 2023 , 01/11/2021, 01/19/2018, Additional history exists RSV VACCINE (60+ or ) (1 - 1-dose 75+ series) 11/28/2023 PNEUMOCOCCAL VACCINE 50+ YEARS Completed 02/20/2016 , 02/17/2015 ZOSTER VACCINE Completed 12/04/2021, 08/22/2021 Medical Devices Implanted Type Area Product Assurance Engineer Device Identifier Shelf Expiration Date Model / Serial / Lot Z Nail Implanted:Qty: 1 on 02/05/2023 by Dimitri Persaud Jr., MD at [facility] Left: Hip PRIETO BI[employer]ET [id number] / / [id number] Description:1X ADD JM Screw Canc Fa 6.0x85mm [id number] - [id number] Implanted:Qty: 1 on 02/05/2023 by Dimitri Persaud Jr., MD at [facility] Left: Hip [employer] 05/14/2032 [id number] / / [id number] Screw Canc Dis Ang 6x80mm [id number] - [id number] Implanted:Qty: 1 on 02/05/2023 by Dimitri Persaud Jr., MD at [facility] Left: Hip PRIETO- [employer] 11/01/2032 [id number] / / [id number] Screw Ft Fa 5.0x35mm [id number] - [id number] Implanted:Qty: 1 on 02/05/2023 by Dimitri Persaud Jr., MD at [facility] Left: Hip [employer] 09/20/2032 [id number] / / [id number] Insurance MEDICARE PART A AND B AETNA MEDICARE SUPP AESSI RX [facility] Medicare Part D RX [employer] (INTERNAL) [facility] Plans Advance Directives For more information, please contact: [phone] * Full Code (Latest Code Status on File) Date Activated Date Inactivated Comments 02/05/2023 2:21 PM 02/07/2023 4:32 PM * Default Full Code - Needs Discussion Date Activated Date Inactivated Comments 02/05/2023 7:11 AM 02/05/2023 2:21 PM * Default Full Code - Needs Discussion Date Activated Date Inactivated Comments 02/05/2023 7:11 AM 02/05/2023 7:11 AM Care Teams Pump Machine Operator Relationship Specialty Start Date End Date Varghese Hernandez MD [address] [address] PCP - General Internal Medicine 06/04/18
--- OUTSIDE RECORDS SUMMARY | 2024-07-06 12:09 | XMS_ITS | Clinical Summary ---
Author Organization [facility] Address [address] [place] [address] Phone Care Team Providers Care Parcel Post Carrier Name Role Phone Varghese Hernandez MD Primary Care Provider [phone] Andi العلي MD Unavailable Allergies No known active allergies Medications atorvastatin (LIPITOR) 20 MG Tablet 12/18/19 21 Active ALPRAZolam (XANAX) 0.25 MG Tablet 12/30/19 21 Active sertraline (ZOLOFT) 50 MG Tablet 04/15/19 19 Active carvedilol (COREG) 3.125 MG Tablet 05/11/19 19 Active doxycycline hyclate (VIBRA-TABS) 100 MG Tablet 05/27/19 19 Active Cholecalcifero l 2000 UNIT Capsule Take by mouth. Activ e Biotin 1000 MCG Tablet Take by mouth. Acti ve gabapentin (NEURONTIN) 100 MG Capsule TAKE 1 CAPSULE BY MOUTH FOUR TIMES A DAY Active HYDROcodone-ac etaminophen (NORCO) 5-325 MG Tablet Take 1 Tablet by mouth. 02/08/20 23 Active naloxone HCl (Narcan) 4 MG/0.1ML Liquid EMERGENCY USE ONLY: Administer 1 spray (4 mg) in one nostril one time. May repeat in alternating nostrils every 2-3 min until responsive or EMS arrives. 02/08/20 23 Active polyethylene glycol (GLYCOLAX, MIRALAX) 17 g Pack Take 17 g by mouth. 02/08/20 23 Active levothyroxine (SYNTHROID) 112 MCG Tablet TAKE 1 TABLET BY MOUTH EVERY DAY 90 Tablet 07/07/19 Active levothyroxine (SYNTHROID) 112 MCG Tablet Take 1 Tablet by mouth daily. 90 Tablet 04/08/20 24 025 Discontinued Active Problems Problem Noted Date Diagnosed Date Age related osteoporosis 11/20/2023 Encounters Date Type Department Care Team Description 07/06/2024 Refill [facility] - [place] [address] [place] [address] Andi العلي MD Medication Refill 05/24/2024 11:30 AM MEDICAL DOSIMETRIST Clinical Support [facility] [address] [place] [address] Andi العلي MD Age related osteoporosis, unspecified pathological fracture presence Discharge Disposition: Discharged to home or Selfcare 05/24/2024 Travel 05/22/2024 Travel 05/21/2024 Telephone [facility] [address] [place] [address] Andi العلي MD Prior Authorization ([employer]ia Approval) 05/06/2024 Telephone [facility] - [place] [address] [place] [address] Andi العلي MD Results 05/06/2024 Telephone [facility] - [place] [address] [place] [address] Andi العلي MD Care Management 05/04/2024 Telephone [facility] [address] [place] [address] Andi العلي MD Medication Management 05/04/2024 Telephone [facility] [address] [place] [address] Andi العلي MD 05/03/2024 10:00 AM MEDICAL DOSIMETRIST Office Visit [facility] - [place] [address] [place] [address] Andi العلي MD Age related osteoporosis, unspecified pathological fracture presence (Primary Dx); Acquired hypothyroidism Discharge Disposition: Discharged to home or Selfcare 05/01/2024 Travel 04/08/2024 Refill [facility] [address] [place] [address] Andi العلي MD Medication Refill; Care Management from Last 3 Months Immunizations Immunization Administration Dates Next Due Influenza, High-dose, Quadrivalent 01/08/2022, Influenza, Injectable, Quadrivalent 02/17/2015 Influenza, Quadrivalent, Adjuvanted 01/11/2023 Influenza, Seasonal, Injectable, Undefined 01/07 Influenza, high-dose, trivalent, PF 12/23/2023 Pneumococcal Vaccine - 13 Valent 02/17/2015 RSV, Recombinant, Protein Peoples bunit Rsvpref, Adjuvant Recon (Arexvy) 02/03/2023 Zoster Vaccine Recombinant 12/04/2021,08/22/2021 Social History Tobacco Use Types Packs/Day Years Used Date Smoking Tobacco: Never Smokeless Tobacco: Never Tobacco Cessation:Counseling Given: Not Answered Comments No Sex and Gender Information Value Date Recorded Sex Assigned at Not on file Legal Sex Female 12:37 AM CDT Gender Identity Not on file Sexual Orientation Not on file Last Filed Vital Signs Vital Sign Reading Time Taken Comments Blood Pressure 142/82 05/24/2024 11:29 AM MEDICAL DOSIMETRIST Pulse 87 05/24/2024 11:29 AM MEDICAL DOSIMETRIST Temperature 36.7 C (98 F) 05/24/2024 11:29 AM MEDICAL DOSIMETRIST Respiratory Rate 18 05/24/2024 11:29 AM MEDICAL DOSIMETRIST Oxygen Saturation 98% 05/24/2024 11:29 AM MEDICAL DOSIMETRIST Inhaled Oxygen Concentration - - Weight 63 kg (139 lb) 05/03/2024 9:56 AM MEDICAL DOSIMETRIST Height - - Body Mass Index - - Plan of Treatment Upcoming Encounters Date Type Department Care Team (Late st Contact Info) Description 11/05/2024 10:00 AM CDT Office Visit [facility] [address] [place] [phone] Andi العلي MD [address] [place] [address] [place] [address] Health Maintenance Due Date Last Done Comments DEXA Bone Density 1950 Hepatitis C Virus (HCV) Screening 1950 TdaP Immunization 1950 Colonoscopy 1993 Colorectal Cancer Screening 1993 Cologuard 1998 Immunochemical Fecal Occult Blood 1998 Pneumococcal Immunization (50+ years) (2 of 2 - PPSV23) 02/18/2016 02/17/2015 SARS-COV-2 Immunization ( season) 2024 12/23/2023, 01/11/2023, 01/08/2022, Additional history exists Pneumococcal Immunization Combined Discontinued 02/17/2015 Zoster Immunization Completed 12/04/2021, Respiratory Syncytial Virus (RSV) Immunization (Adult) Completed 02/03/2023 Influenza Immunization Completed , 01/11/2023, 01/08/2022, Additional history exists Hepatitis B Immunization Aged Out No longer eligible based on patient's age to complete this topic Meningococcal Immunization (ACWY) Aged Out No longer eligible based on patient's age to complete this topic Rotavirus Immunization Aged Out No lo nger eligible based on patient's age to complete this topic Procedures Procedure Name Priority Date/Time Associated Diagnosis Comments VITAMIN D, 25 HYDROXY TOTAL Routine 05/03/2024 11:02 AM MEDICAL DOSIMETRIST Age related osteoporosis, unspecified pathological fracture presence Acquired hypothyroidism PARATHYROID HORMONE PTH INTACT Routine 05/03/2024 11:02 AM MEDICAL DOSIMETRIST Age related osteoporosis, unspecified pathological fracture presence Acquired hypothyroidism CMP (COMPREHENSIVE METABOLIC PANEL) Routine 05/03/2024 11:02 AM MEDICAL DOSIMETRIST Age related osteoporosis, unspecified pathological fracture presence Acquired hypothyroidism THYROXINE (T4) FREE Routine 05/03/2024 1 1:02 AM MEDICAL DOSIMETRIST Age related osteoporosis, unspecified pathological fracture presence Acquired hypothyroidism THYROID STIMULATING HORMONE (TSH) Routine 05/03/2024 11:02 AM MEDICAL DOSIMETRIST Age related osteoporosis, unspecified pathological fracture presence Acquired hypothyroidism from Last 3 Months Results * VITAMIN D, 25 HYDROXY TOTAL (05/03/2024 11:02 AM MEDICAL DOSIMETRIST) VITAMIN D, 25 HYDROX 69.4 ng/mL 05/03/2024 12:29 PM MEDICAL DOSIMETRIST [facility] Blood Venipuncture / Unknown 05/03/2024 11:02 AM MEDICAL DOSIMETRIST 05/03/2024 11:35 AM MEDICAL DOSIMETRIST Narrative [facility] - 05/03/2024 12:29 PM MEDICAL DOSIMETRIST Published reference ranges for Vitamin D vary depending on time and place and method of testing, and on patient's age, sex, ethnicity and levels of other measured analytes such as parathormone, calcium and phosphorus. The result should be evaluated in conjunction with clinical findings and suspicions. [place] [employer] and Endocrine Clinical Practice Guidelines: Status Vitamin D levels (ng/mL) Deficient <=20 At risk of inadequacy 21-29 Sufficient 30-100 Centers of Disease Control and Prevention Guidelines: Status Vitamin D levels (ng/mL) Deficient <13 At risk of inadequacy 13-19 Sufficient 20-50 Possibly harmful >50 References: [place] [employer], 2010 Dietary reference intakes for calcium and vitamin D. [place]: The National Academies Press. Kelli M, Dionicio N, Sumit SUAZO, et al., Evaluation, treatment, and prevention of Vitamin D deficiency: an Endocrinology Clinical Practice Guideline. JCEM 2011 96: 7 2303-3895. Magda A, Kalyan C, Giovanny D, et al., Vitamin D Status: [place], 4197-7858, NMHS data brief, no. 59, MD Con: National Center for Health Statistics. 2011. us Andi العلي MD CHEMISTRY ORDERABLES Final Resul t [facility] [address] [place] [address] * THYROXINE (T4) FREE (05/03/2024 11:02 AM MEDICAL DOSIMETRIST) T4 FREE 0.9 0.7 - 1.9 ng/dL 05/03/2024 12:27 PM MEDICAL DOSIMETRIST [facility] Blood Venipuncture / Unknown 05/03/2024 11:02 AM MEDICAL DOSIMETRIST 05/03/2024 11:34 AM MEDICAL DOSIMETRIST us Andi العلي MD CHEMISTRY ORDERABLES Final Resul t Performing Organization Address City/[facility]/ZIP Co de Phone Number [facility] [address] [place] [address] * THYROID STIMULATING HORMONE (TSH) (05/03/2024 11:02 AM MEDICAL DOSIMETRIST) TSH 1.486 0.300 - 5.000 mIU/L 05/03/2024 12:27 PM MEDICAL DOSIMETRIST [facility] Blood Venipuncture / Unknown 05/03/2024 11:02 AM MEDICAL DOSIMETRIST 05/03/2024 11:34 AM MEDICAL DOSIMETRIST us Andi العلي MD CHEMISTRY ORDERABLES Final Resul t Performing Organization Address City/[facility] Co de Phone Number [facility] [address] [place] [address] * PARATHYROID HORMONE PTH INTACT (05/03/2024 11:02 AM MEDICAL DOSIMETRIST) PTH INTACT 16 13 - 85 pg/mL 05/03/2024 12:14 PM MEDICAL DOSIMETRIST [facility] Blood Venipuncture / Unknown 05/03/2024 11:02 AM MEDICAL DOSIMETRIST 05/03/2024 11:35 AM MEDICAL DOSIMETRIST us Andi العلي MD CHEMISTRY ORDERABLES Final Resul t Performing Organization Address City/[facility] Co de Phone Number [facility] [address] [place] [address] * (ABNORMAL) CMP (COMPREHENSIVE METABOLIC PANEL) (05/03/2024 11:02 AM MEDICAL DOSIMETRIST) SODIUM 135(L) 136 - 145 mmol/L 05/03/2024 12:10 PM [facility] POTASSIUM 4.2 3.5 - 5.1 mmol/L 05/03/2024 12:10 PM [facility] CHLORIDE 101 98 - 107 mmol/L 05/03/2024 12:10 PM [facility] CO2, VENOUS 27 22 - 30 mmol/L 05/03/2024 12:10 PM [facility] ANION GAP 11.2 <18.0 mmol/L 05/03/2024 12:10 PM [facility] GLUCOSE 96 70 - 99 mg/dL 05/03/2024 12:10 PM [facility] BUN 13 10 - 20 mg/dL 05/03/2024 12:10 PM [facility] CREATININE, BLOOD 0.72 0.60 - 1.00 mg/dL 05/03/2024 12:10 PM [facility] BUN/CREATININE RATIO 18 12 - 20 ratio 05/03/2024 12:10 PM [facility] TOTAL PROTEIN 7.1 6.0 - 8.0 g/dL 05/03/2024 12:10 PM [facility] ALBUMIN 4.1 3.5 - 5.0 g/dL 05/03/2024 12:10 PM [facility] A/G RATIO 1.4 1.0 - 2.2 05/03/2024 12:10 PM [facility] CALCIUM 9.4 8.7 - 10.5 mg/dL 05/03/2024 12:10 PM [facility] T BILI 0.2 0.2 - 1.2 mg/dL 05/03/2024 12:10 PM [facility] SGOT (AST) 24 6 - 42 U/L 05/03/2024 12:10 PM [facility] SGPT (ALT) 18 6 - 55 U/L 05/03/2024 12:10 PM [facility] ALKALINE PHOSPHATASE 63 40 - 150 U/L 05/03/2024 12:10 PM MEDICAL DOSIMETRIST [facility] IS THE PATIENT REQUIRED TO BE FASTING? No 05/03/2024 12:10 PM MEDICAL DOSIMETRIST [facility] GFR, ESTIMATED >60 >=60 05/03/2024 12:10 PM MEDICAL DOSIMETRIST [facility] Comment: Creatinine Clearance is the preferred criteria for selecting drug dose adjustments in renally impaired patients. The GFR is provided as additional pertinent clinical information. GFR is reported in mL/min/1.73 sq m. Calculation based on the Chronic Kidney Disease Epidemiology Collaboration (CKD- EPI) equation refit without adjustment for race. GFR, EST. >60 >=60 025 12:10 PM MEDICAL DOSIMETRIST [facility] GFR, EST. NONAFRICAN >60 >=60 05/03/2024 12:10 PM MEDICAL DOSIMETRIST [facility] Blood Venipuncture / Unknown 05/03/2024 11:02 AM MEDICAL DOSIMETRIST 05/03/2024 11:34 AM MEDICAL DOSIMETRIST us Andi العلي MD CHEMISTRY ORDERABLES Final Resul t [facility] [place] [address] from Last 3 Months Insurance COMM[employer]IC [address] [id number] [facility] Care Teams Parcel Post Carrier Relationship Specialty Start Date End Date Varghese Hernandez MD [address] [facility] [address] [place] [address] PCP - General Internal Medicine 01/28/21 Andi العلي MD [address] [address] Consulting Physician Endocrinology 09/30/23
--- OUTSIDE RECORDS SUMMARY | 2024-07-06 12:09 | XMS_ITS | Encounter Summary ---
Author Organization [facility] Address [address] [place] [address] Phone Care Team Providers Care Trailer Driver Name Role Phone Varghese Hernandez MD Primary Care Provider [phone] Andi العلي MD Unavailable Reason for Visit * Reason Comments Medication Refill Encounter Details Date Type Department Care Team (Late Contact Info) Description 07/06/2024 Refill [facility] - [place] [address] [place] [address] Andi العلي MD [address] [address] Medication Refill Social History Tobacco Use Types Packs/Day Years Used Date Smoking Tobacco: Never Smokeless Tobacco: Never Comments No Sex and Gender Information Value Date Recorded Sex Assigned at Not on file Legal Sex Female 12:37 AM CDT Gender Identity Not on file Sexual Orientation Not on file documented as of this encounter Miscellaneous Notes * Telephone Encounter - Camryn Guadalupe RN - 07/06/2024 8:31 AM CDT Medication(s) refilled and signed per [facility] Chronic Medication Refill Standing Order for Pediatric and Adult Patients. documented in this encounter Plan of Treatment Upcoming Encounters Date Type Department Care Team (Late Contact Info) Description 11/05/2024 10:00 AM CDT Office Visit [facility] - [place] [address] [place] [address] Andi العلي MD [address] [address] [address] documented as of this encounter Visit Diagnoses Not on filedocumented in this encounter Care Teams Trailer Driver Relationship Specialty Start Date End Date Varghese Hernandez MD [address] [facility] [address] [place] [address] PCP - General Internal Medicine 01/28/21 Andi العلي MD [address] [address] [address] Consulting Physician Endocrinology 09/30/23 documented as of this encounter
--- OUTSIDE RECORDS SUMMARY | 2024-07-06 12:09 | XMS_ITS | Referral Summary ---
Author Organization [facility] Address [address] [place] [address] Care Team Providers Care All Around Patternmaker Name Role Phone Varghese Hernandez MD Primary Care Provider Allergies No known active allergies Medications ALPRAZolam (XANAX) 0.25 mg tablet Take 1 tablet (0.25 mg total) by mouth Active atorvastatin (LIPITOR) 20 mg tablet Take 1 tablet (20 mg total) by mouth 1 Active calcium carbonate-vitam in D3 (Os-Adan 500 + D3) 1,250 mg (500 mg elemental)-600 unit tablet Take 1 tablet twice a day by oral route. 3 Active carvediloL (COREG) 3.125 mg tablet Take 1 tablet (3.125 mg total) by mouth 2 (two) times a day Active cholecalciferol (VITAMIN D-3) 2000 unit capsule Take 1 capsule (2,000 Units total) by mouth Active cycloSPORINE (Restasis) 0.05 % ophthalmic emulsion APPLY 1 DROP INTO BOTH EYES TWICE DAILY. Active Prolia 60 mg/mL syringe 4 Active gabapentin (NEURONTIN) 100 mg capsule Take 1 capsule (100 mg total) by mouth 4 (four) times a day Active levothyroxine (SYNTHROID) 112 mcg tablet Take 1 tablet (112 mcg total) by mouth Active naloxone (NARCAN) 4 mg/actuation spray,non-aeros ol EMERGENCY USE ONLY: Administer 1 spray (4 mg) in one nostril one time. May repeat in alternating nostrils every 2-3 min until responsive or EMS arrives. 3 Active sertraline (ZOLOFT) 50 mg tablet 1 tablet (50 mg total) 9 Active Active Problems Problem Noted Date Diagnosed Date Cellulitis of nasal tip 11/13/2023 Assessment & Plan (11/13/2023 1:44 PM CDT): Bactroban apply pea-size amount into each nostril with a cotton tipped applicator, being carefully just to tuck it into each nostril, then massage soft portion of the outer nose to massage the ointment around inside the nose 2-3 times daily for at least two weeks Osteoporosis 10/21/2017 Social History Tobacco Use Types Packs/Day Years Used Date Smoking Tobacco: Never Assessed Comments Unknown Sex and Gender Information Value Date Recorded Sex Assigned at Not on file Legal Sex Female 3:33 PM DIRECTOR [employer] Gender Identity Not on file Sexual Orientation Not on file Last Filed Vital Signs Vital Sign Reading Time Taken Comments Blood Pressure 157/82 11/13/2023 1:16 PM CDT Pulse 77 11/13/2023 1:16 PM CDT Temperature 36.6 C (97.9 F) 02/04/2023 4:45 PM CDT Respiratory Rate 18 11/13/2023 1:16 PM CDT Oxygen Saturation 94% 11/13/2023 1:16 PM CDT Inhaled Oxygen Concentration - - Weight 62.6 kg (138 lb) 11/13/2023 1:16 PM CDT Height 160 cm (5' 2.99 ) 11/13/2023 1:16 PM CDT Body Mass Index 24.45 11/13/2023 1:16 PM CDT Plan of Treatment Not on file Insurance MEDICARE [employer] SENIOR [place] [address] MEDICARE AETNA SENIOR SUPPLEMENT COMMERCIAL GENERIC MEDICARE AETNA SENIOR SUPPLEMENT Care Teams All Around Patternmaker Relationship Specialty Start Date End Date Varghese Hernandez MD PCP - General 09/10/06
--- OUTSIDE RECORDS SUMMARY | 2024-07-06 12:09 | XMS_ITS | CONTINUITY OF CARE DOCUMENT ---
Author Name bello monsalve Address Unknown Organization [facility] Address [address] [address] [facility] [address] [facility] [address] [place] [address] Phone [phone] Care Team Providers Care Emt/Dispatcher Name Role Phone bello monsalve Unavailable Unavailable
--- OUTSIDE RECORDS SUMMARY | 2024-07-06 12:09 | XMS_ITS | Clinical Summary ---
Author Organization [facility] Address [address] [place] [address] Care Team Providers Care Selenium Plant Operator Name Role Phone Varghese Hernandez MD [...] on file Legal Sex Female 3:33 PM INDEPENDENT CONSULTANT Gender Identity Not on file Sexual Orientation Not on file Obstetrics History Last Filed Vital Signs Vital Sign Reading [...] 11/13/2023 1:16 PM CDT Plan of Treatment Health Maintenance Due Date Last Done Comments Colon Cancer Screening-Colonoscopy 1950 Depression Screening 1948 Fall Risk Assessment 1948 Hepatitis C Screening 1948 Osteoporosis Screening-Bone Density Scan 1948 DTaP/Tdap/Td Vaccine (1 - Tdap) 11/28/1959 Hepatitis B Screening 1966 Well Visit 65+ 2013 Pneumococcal vaccine 65+ (2 of 2 - PPSV23) 02/18/2016 02/17/2015 Covid-19 Vaccine (2023-2 5 season) 2023 01/11/2023, 01/08/2022, 08/22/2021, Additional history exists Influenza Vaccine (#1) 2023 , 01/08/2022, 01/11/2021, Additional history exists Zoster Vaccine Completed 12/04/2021, 08/22/2021 Insurance MEDICARE AET SENIOR SUPPLEMENT COMMERCIAL GENERIC MEDICARE AETNA SENIOR [place] [address] MEDICARE AETNA SENIOR SUPPLEMENT [place] [id number] Care Teams Selenium Plant Operator Relationship Specialty Start Date End Date Varghese Hernandez MD PCP - General 09/10/06
== END 2024-07-06 10:19 | disposition home or self-care (01) ==
PROVIDERS: PCP Internal Medicine; Visit Provider Orthopaedic Surgery
DX: M16.0 Bilateral primary osteoarthritis of hip (principal)
CPT/HCPCS: 73502

== ENCOUNTER 2024-07-20 14:40 | Outpatient (CLI) | payer MEDICARE, SELFPAY ==
--- NOTE | ~2024-07-20 | MM_ITS ---
EXAMINATION: MM screening [facility] BI w arlet HISTORY: Screening TECHNIQUE: Craniocaudal and mediolateral oblique 3-D tomosynthesis images were obtained and synthetic 2-D images were generated. CAD analysis was submitted and interpreted. COMPARISON: Comparison to multiple prior studies sequentially, with oldest reviewed study dated 02/12. BREAST PARENCHYMAL COMPOSITION: Not dense: There are scattered areas of fibroglandular density. FINDINGS: There is distortion posteriorly in both breasts with associated calcifications, consistent with previous breast implant removal. There is no evidence of suspicious mass, calcification, or arch itectural distortion to suggest malignancy in either breast. There has been no suspicious interval ch eugenia. IMPRESSION: 1. No mammographic evidence of malignancy. 2. Recommend routine screening mammography in one year. BI-RADS Category 2: Benign finding(s). Reviewed, dictated and finalized at location A.
== END 2024-07-20 14:41 | disposition home or self-care (01) ==
LOC: MICIMG 14:41
PROVIDERS: PCP Internal Medicine; Visit Provider Nurse Practitioner
DX: Z12.31 Encounter for screening mammogram for malignant neoplasm of breast (principal)
CPT/HCPCS: 77063; 77067

== ENCOUNTER 2024-12-16 07:43 | Outpatient (CLI) | payer MEDICARE, SELFPAY ==
--- OUTSIDE RECORDS SUMMARY | 2023-06-10 08:50 | XMS_ITS | Continuity of Care Document ---
Author Organization [facility] Address [address] [address] [facility] [address] [place] [address] Phone Care Team Providers Care Contemporary Or Modern Dancer Name Role Phone Vaishali Alcantara Unavailable Unavailable Allergies, Adverse Reactions, Alerts Substance Reaction Status Criticality No Known Allergies Active No Inform ation Medications Medication Instructions Dosage Effective Dates (start - stop) Status Comments LEVOTHYROXINE SODIUM (unknown strength) take 1 capsule by oral route every day Not Available - Active SERTRALINE HCL (unknown strength) take 1 tablet by oral route every day Not Available - Active CARVEDILOL (unknown strength) take 1 tablet by oral route 2 times every day with food Not Available - Active ATORVASTATIN CALCIUM (unknown strength) take 1 tablet by oral route every day Not Available - Active ALPRAZOLAM (unknown strength) take 1 tablet by oral route 3 times every day Not Available - Active GABAPENTIN (unknown strength) take 1 capsule by oral route 3 times every day Not Available - Active Procedures Procedure Date X-RAY EXAM OF FEMUR /> OFFICE/OUTPATIENT VISIT EST X-RAY EXAM OF FEMUR 2/> POSTOP FOLLOW-UP VISIT X-RAY EXAM OF FEMUR 2/> POSTOP FOLLOW-UP VISIT TREAT THIGH FRACTURE Advance Directives Directive Yes / No Effective Date File Name Other Directive No N/A N/A WARNING:The information contained in this section is historical and is provided for information only and does not constitute a legal document or any assurance that the information is still accurate. Please verify the information with the michael of the legal document before using it for clinical purposes. Encounters Encounter Description Practice Location Reason(s) For Visit Diagnoses Date Provider Providers Copied on Encounter OFFICE/OUTPAT IENT VISIT EST [facility] , [address], [place], [address], [place] tel:[phone] [facility] Status post fracture of femur 4 Reeg Vaishali. [address], [place], [place], [id number] . tel: [phone] Referring Provider: Varghese Vega, [address] [place], [address]. tel:[phone] [facility] , [address], [place], [address], [place] tel:[phone] [facility] Status post fracture of femur 3 Reeg Vaishali. [address], [place], [place], [id number] . tel: [phone] Referring Provider: Varghese Vega, [address] [place], [address]. tel:[phone] [facility] , [address], [place], [address], [place] tel:[phone] [facility] Status post fracture of femur 3 Reeg Vaishali. [address], [place], [place], [id number] . tel: [phone] Referring Provider: Varghese Vega, [address] [place], [address]. tel:[phone] [facility] , [address], [place], [address], [place] tel:[phone] [facility] Unspecified intracapsular fracture of left femur, initial encounter for closed fracture - 3 Hung Mosley. [address], [place], [place], [id number] . tel: [phone] Family History Family Member Type Diagnosis Age At Onset Father Problem Malignant melanoma Brother Problem Lung cancer Mother Problem (finding) Payers Payer name Insurance type Covered alliance party ID Dom amador(s) Medicare E2 OT [id number] [employer] Life Medicare Supplement Plan OT [id number] Social History Type Description Quantity Date Captured Comments Alcohol Use Details Unknown Caffeine Use Details Unknown Tobacco Use Status Current non-smoker Smoking Status Never smoker Non-Smoking Tobacco Use Details : No Details Available : No Details Available Sex Female Vital Signs Date / Time: Height Weight BMI Pulse Rate Blood Pressure Temperature Respiratory Rate Body Surface Area Head Circumference Head Circ. Percentile Wt./Mani. Percentile BMI percentile Pulse Ox Inhaled Ox 7:28 AM 63.00 in 61.235 kg (135.00 lbs) 23.9 1 kg/m eter (2) Chief Complaint And Reason For Visit No Information Reason For Referral Reason For Referral No Information Plan Of Treatment Date Type Action Status Referral Ordered: X-RAY EXAM OF FEMUR 2/> LT ordered History Of Present Illness Encounter Date Complaint History Of Prese nt Illness No Information Functional Status Date Functional Assessmen t No Information Instructions Date Instruction Additional Infor mation No Information Assessments Type Assessment Date assessment Status post fracture of femur Patient Care Teams Name Effective Dates (start - stop) Status Members No Information
--- NOTE | ~2024-12-16 | DEXA_ITS ---
Bone Density Report Name: TANISHA RAMSEY Age: 74 Sex: Female Ethnicity: White Date of : 1950 Indication: postmenopausal; screening for osteoporosis; height loss; prior fracture; rheumatoid arthritis; Referring Provider: UNKNOWN, UNKNOWN Study: Bone densitometry was performed. Exam Date: December 16, 2024 Accession number: [id number] Bone Density: Region BMD T-score Z-score Classification AP Spine(L1-L4) 1.074 0.2 2.7 Normal Femoral Neck (Right) 0.779 -0.6 1.5 Normal Total Hip (Right) 0.985 0.4 2.2 Normal World Health Organization criteria for BMD impression classify patients as: Normal (T-score at or above -1.0), Osteopenia (T-score between -1.0 and -2.5), or Osteoporosis (T-score at or below -2.5). 10-year Fracture Risk: FRAX not reported because: All T-scores for Spine Total, Hip Total, Femoral Neck at or above -1.0 Prior hip or vertebral fracture Clinical Information Provided by Patient: Have had a previous hip or vertebral fracture Has had a low trauma fracture Has rheumatoid arthritis Is being treated for osteoporosis Has used the following medications: Prolia (i.e. denosumab), Vitamin D, Calcium Patient maximum height was 64 Menopause Age: 50 Drinks caffeinated beverages Onset of menses at age 12 Number of children 3 Impression: The patient has normal bone mass. The patient has risk factors, including: previous fracture. Discussion: It is important to ask patients whether they are taking their medications and to encourage continued and appropriate compliance with their osteoporosis therapies to reduce fracture risk. It is also important to review their risk factors and encourage appropriate calcium and vitamin D intakes, exercise, fall prevention and other lifestyle measures. Follow-Up: Consider a repeat BMD and Vertebral Fracture Assessment (VFA) exam in 2 years or sooner if medically necessary, to reassess this patient's status. Reported by: AMADA on 12/16/2024 8:26:00 AM. Reviewed, dictated and finalized at location A.
--- OUTSIDE RECORDS SUMMARY | 2024-12-16 07:54 | XMS_ITS | Clinical Summary ---
Author Organization [facility] Address [address] [place] [address] Phone Care Team Providers Care Cashier Ticket Selling Name Role Phone Varghese Hernandez MD Primary Care Provider [phone] Andi العلي MD Unavailable Allergies No known active allergies Medications atorvastatin (LIPITOR) 20 MG Tablet 12/18/19 21 Active ALPRAZolam (XANAX) 0.25 MG Tablet 12/30/19 21 Active sertraline (ZOLOFT) 50 MG Tablet 04/15/19 19 Active carvedilol (COREG) 3.125 MG Tablet 05/11/19 19 Active doxycycline hyclate (VIBRA-TABS) 100 MG Tablet 05/27/19 19 Active Cholecalciferol 2000 UNIT Capsule Take by mouth. Activ e Biotin 1000 MCG Tablet Take by mouth. Activ e gabapentin (NEURONTIN) 100 MG Capsule TAKE 1 CAPSULE BY MOUTH FOUR TIMES A DAY Active HYDROcodone-grace taminophen (NORCO) 5-325 MG Tablet Take 1 Tablet [...] Active levothyroxine (SYNTHROID) 112 MCG Tablet TAKE 1/2 TABLET BY MOUTH EVERY DAY 45 Tablet 3 12/04/19 Active levothyroxine (SYNTHROID) 112 MCG Tablet TAKE 1 TABLET BY MOUTH EVERY DAY 90 Tablet 10/08/19 25 2024 Discontinued Denosumab (Prolia) 60 MG/ML Solution Prefilled SyringeIndicati ons:Age related osteoporosis, unspecified pathological fracture presence 1 mL by Subcutaneous route once for 1 dose. 1 mL 11/23/19 25 2024 Active Problems Problem Noted Date Diagnosed Date Age related osteoporosis 11/20/2023 Encounters Date Type Department Care Team Description 12/03/2024 Refill [facility] [address] [place] [address] Andi العلي MD Medication Refill 11/22/2024 11:30 AM CDT Clinical Support [facility] Oncology Services [address] [place] [address] Andi العلي MD Age related osteoporosis, unspecified pathological fracture presence Discharge Disposition: Discharged to home or Selfcare 11/22/2024 Travel 11/21/2024 Travel 11/07/2024 Telephone [facility] [address] [place] [address] Andi العلي MD Results 11/07/2024 Telephone [facility] [address] [place] [address] Andi العلي MD Medication Management 11/05/2024 10:00 AM CDT Office Visit [facility] [address] [place] [address] Andi العلي MD Age related osteoporosis, unspecified pathological fracture presence (Primary Dx); Acquired hypothyroidism Discharge Disposition: Discharged to home or Selfcare 11/03/2024 Travel 10/07/2024 Refill [facility] [address] [place] [address] Andi العلي MD Medication Refill from Last 3 Months Immunizations Immunization Administration [...] Sign Reading Time Taken Comments Blood Pressure 159/78 11/22/2024 11:58 AM CDT Pulse 70 11/22/2024 11:58 AM CDT Temperature 36.6 C (97.8 F) 11/22/2024 11:58 AM CDT Respiratory Rate 20 11/22/2024 11:58 AM CDT Oxygen Saturation 96% 11/22/2024 11:58 AM CDT Inhaled Oxygen Concentration - - Weight 62.8 kg (138 lb 6.4 oz) 11/05/2024 10:02 AM CDT Height - - Body Mass Index - - Plan of Treatment Upcoming Encounters Date Type Department Care Team (Late st Contact Info) Description 05/09/2025 11:00 AM 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 Office Visit [facility] - Endocrinology - [facility] [address] [place] [phone] Andi العلي MD [address] [place] [phone] Health Maintenance Due Date Last Done Comments DEXA Bone Density 1950 Hepatitis C Virus (HCV) Screening 1950 TdaP Immunization 1950 Pneumococcal Immunization (50+ years) (2 of 2 - PCV20 or PCV21) 02/18/2016 02/17/2015 Influenza Immunization (#1) 12/13/202412/13, 01/11/2023, 01/08/2022, Additional history exists Pneumococcal Immunization Combined Discontinued 02/17/2015 Zoster Immunization Completed 12/04/2021, Respiratory Syncytial Virus (RSV) Immunization (Adult) Completed 02/03/2023 SARS-COV-2 Immunization Completed 08/18/19, 12/23/2023, 01/11/2023, Additional history exists Hepatitis B Immunization Aged Out No longer eligible based on patient's age to complete this topic Human Papillomavirus (HPV) Immunization Aged Out No longer eligible based on patient's age to complete this topic Meningococcal Immunization (ACWY) Aged Out No longer eligible based on patient's age to complete this topic Rotavirus Immunization Aged Out No lo nger eligible based on patient's age to complete this topic Procedures Procedure Name Priority Date/Time Associated Diagnosis Comments THYROID SCREEN WITH REFLEX Routine 11/05/2024 10:37 AM CDT Age related osteoporosis, unspecified pathological fracture presence Acquired hypothyroidism THYROID SCREEN WITH REFLEX Routine 11/05/2024 10:37 AM CDT Age related osteoporosis, unspecified pathological fracture presence Acquired hypothyroidism VITAMIN D, 25 HYDROXY TOTAL Routine 11/05/2024 10:37 AM CDT Age related osteoporosis, unspecified pathological fracture presence Acquired hypothyroidism PARATHYROID HORMONE PTH INTACT Routine 11/05/2024 10:37 AM CDT Age related osteoporosis, unspecified pathological fracture presence Acquired hypothyroidism CMP (COMPREHENSIVE METABOLIC PANEL) Routine 11/05/2024 10:37 AM CDT Age related osteoporosis, unspecified pathological fracture presence Acquired hypothyroidism from Last 3 Months Results * VITAMIN D, 25 HYDROXY TOTAL (11/05/2024 10:37 AM CDT) VITAMIN D, 25 HYDROX 67.4 ng/mL 11/05/2024 11:29 AM CDT [facility] Blood Venipuncture / Unknown 11/05/2024 10:37 AM CDT 11/05/2024 10:45 AM CDT Narrative [facility] - 11/05/2024 11:29 AM CDT Published reference ranges for Vitamin D vary depending on time and place and method of testing, and on patient's age, sex, ethnicity and levels of other measured analytes such as parathormone, calcium and phosphorus. The result should be evaluated in conjunction with clinical findings and suspicions. Clifford of Medicine and Endocrine Clinical Practice Guidelines: Status Vitamin D levels (ng/mL) Deficient <=20 At risk of inadequacy 21-29 Sufficient 30-100 Centers of Disease Control and Prevention Guidelines: Status Vitamin D levels (ng/mL) Deficient <13 At risk of inadequacy 13-19 Sufficient 20-50 Possibly harmful >50 References: Clifford of Medicine, 2010 Dietary reference intakes for calcium and vitamin D. [place]: The National Academies Press. Kelli M, Dionicio N, Sumit SUAZO, et al., Evaluation, treatment, and prevention of Vitamin D deficiency: an Endocrinology Clinical Practice Guideline. JCEM 2011 96: 7 7095-7628. Magda A, Kalyan C, Giovanny D, et al., Vitamin D Status: [place], 7387-0499, [facility] data brief, no. 59, MD Con: National Center for Health Statistics. 2011. us Andi العلي MD CHEMISTRY ORDERABLES Final Resul t Performing Organization Address City/State/[facility] Co de Phone Number [facility] [address] [place] [address] * THYROID SCREEN WITH REFLEX (11/05/2024 10:37 AM CDT) TSH 1.351 0.300 - 5.000 mIU/L 11/05/2024 11:28 AM CDT [facility] Blood Venipuncture / Unknown 11/05/2024 10:37 AM CDT 11/05/2024 10:45 AM CDT us Andi العلي MD CHEMISTRY ORDERABLES Final Resul t [facility] [address] [place] [address] * PARATHYROID HORMONE PTH INTACT (11/05/2024 10:37 AM CDT) PTH INTACT 19 13 - 85 pg/mL 11/05/2024 11:13 AM CDT [facility] Blood Venipuncture / Unknown 11/05/2024 10:37 AM CDT 11/05/2024 10:45 AM CDT us Andi العلي MD CHEMISTRY ORDERABLES Final Resul t Performing Organization Address City/[facility]/ZIP Co de Phone Number [facility] [address] [place] [address] * (ABNORMAL) CMP (COMPREHENSIVE METABOLIC PANEL) (11/05/2024 10:37 AM CDT) SODIUM 136 136 - 145 mmol/L 11/05/2024 11:09 AM CDT [facility] POTASSIUM 4.3 3.5 - 5.1 mmol/L 11/05/2024 11:09 AM CDT [facility] CHLORIDE 100 98 - 107 mmol/L 11/05/2024 11:09 AM CDT [facility] CO2, VENOUS 27 22 - 30 mmol/L 11/05/2024 11:09 AM CDT [facility] ANION GAP 13.3 <18.0 mmol/L 11/05/2024 11:09 AM CDT [facility] GLUCOSE 104(H) 70 - 99 mg/dL 11/05/2024 11:09 AM CDT [facility] BUN 8(L) 10 - 20 mg/dL 11/05/2024 11:09 AM CDT [facility] CREATININE, BLOOD 0.75 0.60 - 1.00 mg/dL 11/05/2024 11:09 AM CDT [facility] BUN/CREATININE RATIO 11(L) 12 - 20 ratio 11/05/2024 11:09 AM [facility] TOTAL PROTEIN 7.2 6.0 - 8.0 g/dL 11/05/2024 11:09 AM [facility] ALBUMIN 4.6 3.5 - 5.0 g/dL 11/05/2024 11:09 AM [facility] A/G RATIO 1.8 1.0 - 2.2 11/05/2024 11:09 AM [facility] CALCIUM 9.6 8.7 - 10.5 mg/dL 11/05/2024 11:09 AM [facility] T BILI 0.4 0.2 - 1.2 mg/dL 11/05/2024 11:09 AM [facility] SGOT (AST) 29 <43 U/L 11/05/2024 11:09 AM [facility] SGPT (ALT) 23 <56 U/L 11/05/2024 11:09 AM [facility] ALKALINE PHOSPHATASE 58 40 - 150 U/L 11/05/2024 11:09 AM [facility] IS THE PATIENT REQUIRED TO BE FASTING? No 11/05/2024 11:09 AM [facility] GFR, ESTIMATED >60 >=60 11/05/2024 11:09 AM [facility] Comment: Creatinine Clearance is the preferred criteria for selecting drug dose adjustments in renally impaired patients. The GFR is provided as additional pertinent clinical information. GFR is reported in mL/min/1.73 sq m. Calculation based on the Chronic Kidney Disease Epidemiology Collaboration (CKD- EPI) equation refit without adjustment for race. GFR, EST. >60 >=60 025 11:09 AM [facility] GFR, EST. NONAFRICAN >60 >=60 11/05/2024 11:09 AM [facility] Blood Venipuncture / Unknown 11/05/2024 10:37 AM CDT 11/05/2024 10:45 AM CDT us Andi العلي MD CHEMISTRY ORDERABLES Final Resul t [facility] [address] [place] [address] from Last 3 Months [facility] Care Teams Cashier Ticket Selling Relationship Specialty Start Date End Date Varghese Hernandez MD [address] [facility] [address] [place] [address] PCP - General Internal Medicine 01/28/21 Andi العلي MD [address] [phone] Consulting Physician Endocrinology 09/30/23
--- OUTSIDE RECORDS SUMMARY | 2024-12-16 07:54 | XMS_ITS | Encounter Summary ---
Author Organization [facility] Address [address] [place] [address] Phone Care Team Providers Care Cook Larder Name Role Phone Varghese Hernandez MD Primary Care Provider Encounter Details Date Type Department Care Team (Late st Contact Info) Description 11/02/2024 Results Follow-Up [facility] Movement Disorders [facility] 7th [place] [address] Cris Persaud, RN Transferrin, Iron profile w/ IBC, Ferritin Social History Tobacco Use Types Packs/Day Years Used Date Smoking Tobacco: Never Smokeless Tobacco: Never Comments Unknown Sex and Gender Information Value Date Recorded Sex Assigned at Not on file 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 Livingston wanted to let you know your recent labs were unremarkable. Let us know if you have any questions. Take Care, Cris BATEMAN, RN Movement Disorders Department of Neurology ----- Message from Tino Jacome MD sent at 11/02/2024 9:21 AM CDT ----- Good morning, Can we let her know her labs were unremarkable? ThanksTino ----- Message ----- From: Interface, Lab Results In Sent: 11/01/2024 2:14 PM CDT To: Tino Jacome MD documented in this encounter Plan of Treatment Not on file documented as of this encounter Visit Diagnoses Not on filedocumented in this encounter Care Teams Cook Larder Relationship Specialty Start Date End Date Varghese Hernandez MD PCP - General 09/10/06 documented as of this encounter
--- OUTSIDE RECORDS SUMMARY | 2024-12-16 07:54 | XMS_ITS | Clinical Summary ---
Author Organization [facility] Address [address] [place] [address] Care Team Providers Care Administrative Medical Director Name Role Phone Varghese Hernandez MD Primary Care Provider [phone] Allergies No known active allergies Medications ALPRAZolam [...] ns:Closed fracture of left hip, initial encounter (CMS/[facility]) Take 1 Tablet by mouth every 6 hours as needed for Break-Through Pain. Max Daily Amount: 4 Tablets 15 Tablet 02/07/2023 1:58 PM CDT 3 Active polyethylene glycol (MIRALAX) 17 gram Powder in Packet Take 1 Packet (17 Grams) by mouth 2 times daily as needed for Constipation. 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 Gender Identity Not on file Sexual Orientation [...] A M CDT Height 160 cm (5' 3) 02/06/2023 9:00 AM CDT Body Mass Index 23.93 02/05/2023 2:52 AM CDT Plan of Treatment Health Maintenance Due Date Last Done Comments DTAP/TDAP/TD VACCINES (1 - Tdap) 11/28/1967 OSTEOPOROSIS SCREENING 2013 RSV VACCINE (60+ or ) (1 - 1-dose 75+ series) 11/28/2023 INFLUENZA VACCINE (#1) 2024 , 01/11/2021, 01/19/2018, Additional history exists PNEUMOCOCCAL VACCINE 50+ YEARS Completed 02/20/2016 , 02/17/2015 ZOSTER VACCINE Completed 12/04/2021, 08/22/2021 Medical Devices Implanted Type Area Patcher Wood Welder Device Identifier Shelf Expiration Date Model / Serial / Lot Z Nail Implanted:Qty: 1 on 02/05/2023 by Dimitri Persaud Jr., MD at [facility] Nail Left: Hip [employer] [id number] / / [id number] Description:1X ADD JM Screw Canc Fa 6.0x85mm [id number] - [id number] Implanted:Qty: 1 on 02/05/2023 by Dimitri Persaud Jr., MD at [facility] Left: Hip [employer] 05/14/2032 [id number] / / [id number] Screw Canc Dis Ang 6x80mm [id number] - [id number] Implanted:Qty: 1 on 02/05/2023 by Dimitri Persaud Jr., MD at [facility] Screw Left: Hip [employer] 11/01/2032 [id number] / / [id number] Screw Ft Fa 5.0x35mm [id number] - [id number] Implanted:Qty: 1 on 02/05/2023 by Dimitri Persaud Jr. MD at [facility] Left: Hip [employer] 09/20/2032 [id number] / / [id number] Insurance MEDICARE PART A AND B AETNA MEDICARE SUPP AESSI RX [facility] Medicare Part D RX [employer] (INTERNAL) [facility] Advance Directives For more information, please contact: [phone] * Full Code (Latest Code Status on File) Date Activated Date Inactivated Comments 02/05/2023 2:21 PM 02/07/2023 4:32 PM * Default Full Code - Needs Discussion Date Activated Date Inactivated Comments 02/05/2023 7:11 AM 02/05/2023 2:21 PM * Default Full Code - Needs Discussion Date Activated Date Inactivated Comments 02/05/2023 7:11 AM 02/05/2023 7:11 AM Care Teams Administrative Medical Director Relationship Specialty [place] [address] [place] [phone] PCP - General Internal Medicine 06/04/18
--- OUTSIDE RECORDS SUMMARY | 2024-12-16 07:55 | XMS_ITS | Clinical Summary ---
Author Organization [facility] Address [address] [place] [address] Care Team Providers Care Cream Tester Name Role Phone Varghese Hernandez MD Primary [...] for at least two weeks Osteoporosis 10/21/2017 Encounters Date Type Department Care Team Description 11/24/2024 Orders Only [facility] Medicine Movement Disorders [address] [address] Tino Navarro MD Myelopathy (Primary Dx) 11/05/2024 Orders Only [facility] Movement Disorders [address] [place] [address] Tino Navarro MD 11/02/2024 Results Follow-Up [facility] Movement Disorders [address] [phone] Cris Persaud RN Transferrin, Iron profile w/ IBC, Ferritin 11/01/2024 3:30 PM CDT Lab [facility] Advanced [facility] [address] [place] [phone] Iron deficiency 11/01/2024 2:00 PM CDT Clinical Support [facility] Medicine Movement Disorders [address] [place] [phone] Restless legs syndrome (RLS) 11/01/2024 1:00 PM CDT Office Visit [facility] Medicine Movement Disorders [address] [place] [phone] Tino Navarro MD RLS (restless legs syndrome) (Primary Dx); Iron deficiency from Last 3 Months Social History Tobacco Use Types Packs/Day Years Used Date Smoking Tobacco: Never Smokeless Tobacco: Never Tobacco Cessation:Counseling Given: Not Answered Comments Unknown Sex and Gender Information Value Date Recorded Sex Assigned at Not on file 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 Gender Identity Not on file Sexual Orientation Not on file Obstetrics History Last Filed Vital Signs Vital Sign Reading Time Taken Comments Blood Pressure 162/89 11/01/2024 10:56 AM CDT Pulse 64 11/01/2024 10:56 AM CDT Temperature 36.6 C (97.9 F) 02/04/2023 4:45 PM CDT Respiratory Rate 18 11/13/2023 1:16 PM CDT Oxygen Saturation 94% 11/13/2023 1:16 PM CDT Inhaled Oxygen Concentration - - Weight 63.1 kg (139 lb 3.2 oz) 11/01/2024 10:56 AM CDT Height 157.5 cm (5' 2) 11/01/2024 10:56 AM CDT Body Mass Index 25.46 11/01/2024 10:56 AM CDT Plan of Treatment Health Maintenance Due Date Last Done Comments Fall Risk Assessment 1950 Hepatitis C Screening 1950 Osteoporosis Screening-Bone Density Scan 1950 DTaP/Tdap/Td Vaccine (1 - Tdap) 11/28/1959 Hepatitis B Screening 1966 Well Visit 65+ 2013 Pneumococcal vaccine 65+ (2 of 2 - PCV20 or PCV21) 02/18/2016 02/17/2015 Covid-19 Vaccine (2023-2 5 season) 2023 01/11/2023, 01/08/2022, 08/22/2021, Additional history exists Influenza Vaccine (#1) 2024 , 01/11/2023, 01/08/2022, Additional history exists Depression Screening 11/01/2025 11/01/2024 Zoster Vaccine Completed 12/04/2021, 08/22/2021 Procedures Procedure Name Priority Date/Time Associated Diagnosis Comments FERRITIN Routine 11/01/2024 1:23 PM CDT Iron deficiency IRON PROFILE W/ IBC Routine 11/01/2024 1 :23 PM CDT Iron deficiency TRANSFERRIN Routine 11/01/2024 1:23 PM CDT Iron deficiency from Last 3 Months Results * Iron profile w/ IBC (11/01/2024 1:23 PM CDT) Iron 98 35 - 145 mcg/dL TIBC 289 250 - 400 mcg/dL [facility] Transferrin saturation 34 20 - 50 % [facility] Blood 11/01/2024 1:23 PM CDT 11/01/2024 1:34 PM CDT Tino Jacome MD LAB BLOOD ORDERABLES Fi nal Result Performing Organization Address City/[facility] Co de Phone Number [facility] [place] [address] * Transferrin (11/01/2024 1:23 PM CDT) Transferrin 259 200 - 360 mg/dL Blood 11/01/2024 1:23 PM CDT 11/01/2024 1:34 PM CDT Tino Jacome MD LAB BLOOD ORDERABLES Fi nal Result Performing Organization Address City/[facility] Co de Phone Number [facility] [place] [address] * Ferritin (11/01/2024 1:23 PM CDT) Ferritin 123 13 - 150 ng/mL Blood 11/01/2024 1:23 PM CDT 11/01/2024 1:34 PM CDT Tino Jacome MD LAB BLOOD ORDERABLES Fi nal Result Performing Organization Address City/[facility]/ZIP Co de Phone Number [facility] [place] [address] from Last 3 Months Insurance [facility] MEDICARE ADVANTAGE [facility] MEDICARE Address: [address] [address] [place] [address] [place] [address] [employer] SENIOR [place]LE[place] [address] A[employer] SENIOR SUPPLEMENT [address] MEDICARE ADVANTAGE [facility] MEDICARE Address: [address] [address] [place] [address] Care Teams Cream Tester Relationship Specialty Start Date End Date Varghese Hernandez MD PCP - General 09/10/06
== END 2024-12-16 07:44 | disposition home or self-care (01) ==
LOC: ANHFOHIMG 07:48
PROVIDERS: PCP Internal Medicine
DX: M81.0 Age-related osteoporosis without current pathological fracture (principal)
CPT/HCPCS: 77080